=== PATIENT | female | born 1990 | race Caucasian/White ===

== ENCOUNTER 2024-02-26 12:49 | Inpatient (IN) ==
[2024-02-26 13:45] LABS: Basophils # (auto) 0.02 K/uL (0.00-0.20); Basophils % (auto) 0.1 %; Eosinophils # (auto) 0.07 K/uL (0.00-0.50); Eosinophils % (auto) 0.5 %; Hemoglobin 9.3 g/dl (12.0-16.0); Immature Granulocytes # (auto) 0.07 K/uL (0.01-0.20); Immature Granulocytes % (auto) 0.5 %; Lymphocytes # (auto) 0.68 K/uL (1.20-3.40); Lymphocytes % (auto) 4.8 %; Mean Corpuscular Hemoglobin 21.2 pg (25.0-34.0); Mean Corpuscular Volume 70.8 fL (80.0-100.0); Mean Platelet Volume 11.6 fL (9.4-12.4); Monocytes # (auto) 0.92 K/uL (0.11-0.59); Monocytes % (auto) 6.5 %; Neutrophils # (auto) 12.29 K/uL (1.40-6.50); Neutrophils % (auto) 87.6 %; Platelet Count 379 K/uL (130-400); RDW Standard Deviation 45.2 fL (36.4-46.3); Red Blood Count 4.38 M/uL (4.20-5.40); White Blood Count 14.05 K/ul (4.8-10.8)
[2024-02-26 14:02] LABS: Bilirubin,Total 0.3 mg/dl (0.2-1.0); Calcium 8.5 mg/dl (8.6-10.3); Potassium 3.9 mmol/L (3.5-5.1)
[2024-02-26 14:09] LABS: Albumin Globulin Ratio 0.7 (0.9-2); Creatinine Clr Calc Pharmacy 150.1 ml/min; Est GFR (African American) 141.7 ml/min; Est GFR (Non-African American) 122.3 ml/min; Globulin 4.4 gm/dl (2.5-4.0); Total Protein 7.4 gm/dl (6.0-8.3)
[2024-02-26 14:18] LABS: Pregnancy Test, Serum Negative (Negative)
[2024-02-26] MEDS: SODIUM CHLORIDE 0.9% 1,000 ML IV ONE ×2 (14:18→16:30)
[2024-02-26 14:59] LABS: Appearance Urine Clear (Clear); Bacteria Urine Automated None Seen (None Seen); Bilirubin Urine Negative (Negative); Blood Urine 3+ (Negative); Cast Urine Automated 0-2 /lpf (0-2); Color Urine Yellow; Glucose Urine UA Negative (Negative); Ketones Urine Negative (Negative); Leukocyte Esterase Urine Trace (Negative); Nitrite Urine Negative (Negative); Protein Urine Negative (Negative); RBC Urine Automated >20 /hpf (0-2); Specific Gravity Urine 1.012 (1.000-1.030); Urobilinogen Urine Negative (Negative); WBC Urine Automated 0-5 /hpf (0-5)
[2024-02-26] MEDS: OPTIRAY 320 100ml IV ONE (15:11)
--- NOTE | 2024-02-26 15:32 | CT Scan Report ---
CT OF THE ABDOMEN AND PELVIS WITH CONTRAST CLINICAL HISTORY: Right lower quadrant abdominal pain. COMPARISON STUDY: Pelvic ultrasound performed earlier today. TECHNIQUE: Following IV administration of 93 mL of Optiray, axial images of the abdomen and pelvis we re obtained from the lung bases to the proximal femurs. Images were reviewed in the axial, sagittal, and coronal planes. IV contrast was administered without complication. Automated exposure control wa s utilized for the study. A dose lowering technique was utilized adhering to the principles of ALARA . CT DOSE: 1015.67 mGy.cm FINDINGS: A 7 mm left lower lobe pulmonary nodule on image 5 of 293 is noted. Lung bases are otherwis e unremarkable. No pneumatosis, free air or portal venous gas is present. There is no biliary ductal dilatation status post cholecystectomy. Spleen, renal glands, kidneys and pancreas are unremarkable w ith exception of a low-attenuation 9 mm lesion which arises from the lower pole of the left kidney. T his measures just above water attenuation. There is no hydronephrosis. There is no evidence for a bow el obstruction. The appendix is mildly thickened, measuring 8 mm in caliber. The findings do not sugg est acute appendicitis. There is extensive right lower quadrant inflammation centered on the terminal ileum, extending into the mesentery. There is long segment moderate circumferential wall thickening with mucosal hyperemia of the distal ileum. Tethering within the mesentery is noted, shown best on im age 206 of 393. The findings suggest multiple underlying enteroenteric fistulas as well as possible c oloenteric fistulas. There is a loculated rim-enhancing fluid collection anterior to the terminal ile um which measures 7.1 x 4.5 cm. This appears to extend into the right rectus sheath. Extensive adjace nt inflammation is present. This contains a small amount of gas. No additional fluid collections are present. There is a small amount of fluid within the pelvis. Major vasculature is patent. IMPRESSION: 1. Extensive right lower quadrant inflammation centered on the distal ileum. Long segment circumferen tial wall thickening with mucosal hyperemia of the distal ileum with an associated multiloculated rim -enhancing 7.1 x 4.5 cm abscess anterior to the terminal ileum which extends into the right rectus sh eath. The findings suggest active inflammatory bowel disease with abscess formation. No bowel obstruc tion. Associated tethering of multiple small bowel loops and the transverse colon suggests underlying fistulas. 2. Mildly thickened appendix, likely secondary to active inflammatory bowel disease. No evidence for acute appendicitis. 3. Small amount of fluid within the pelvis. 4. 9 mm hypodense left lower pole renal lesion. A renal cyst is favored however a nonemergent renal u ltrasound is recommended for confirmation. 5. 7 mm left lower lobe pulmonary nodule. This is likely benign. A chest CT in 6 months to ensure sta bility is recommended. ACT 112: Positive. There are findings on this exam that require communication between the performing entity and the patient following Patient Test Result Information Act ([place] Act 112) guidelines. Electronically signed by: Ramana Toledo M.D. 02/26/2024 3:30 PM
--- NOTE | 2024-02-26 15:41 | Ultrasound Report ---
PELVIC ULTRASOUND CLINICAL HISTORY: RLQ pain/abnormal vag bleed COMPARISON STUDY: Same day CT of the abdomen and pelvis. TECHNIQUE: Transabdominal and transvaginal sonography of the pelvis was performed. FINDINGS: Uterus measures 10 x 5.4 x 5.5 cm. The endometrium measures 1 cm in thickness. A small amou nt of fluid within the pelvis is present. There is color flow within each ovary. The right ovary justyn ures 2.7 x 1.9 x 2.5 cm and the left ovary measures 3 x 2.3 x 3 cm. Note is made of a complex fluid c ollection within the right lower quadrant which measures 9.1 x 8 x 5.3 cm. There is wall thickening o f several adjacent ileal loops. IMPRESSION: 1. Unremarkable sonographic appearance of the uterus and ovaries. 2. 9.1 x 8 x 5.3 cm complex right lower quadrant fluid collection consistent with an abscess, likely secondary to active inflammatory bowel disease given circumference wall thickening of the adjacent di stal ileum, better depicted on same-day CT. 3. Small amount of fluid within the pelvis. ACT 112: Negative or not required by law. Electronically signed by: Ramana Toledo M.D. 02/26/2024 3:40 PM
--- NOTE | 2024-02-26 16:12 | Emergency Department Note ---
Impression & Plan Intra-abdominal abscess, Abdominal pain, RLQ, Sepsis, Leukocytosis ED Provider Note HISTORY OF PRESENT ILLNESS: Patient is a 33-year-old female presenting with right lower quadrant abdominal pain. Patient reports she has had a vague pain in her right lower quadrant for the last 3 to 4 days. Reports pain became more acutely intense last night. She started noticing hematuria and has had chills at home for the last 3 to 4 days. She states that her last menstrual period was 02/05/2024. She denies any vaginal bleeding when prompted by myself. She denies any history of abdominal surgeries other than a cholecystectomy. She reports she has a history of Crohn's disease, but has not been on your Humira for a number of months. Reports that she has an appointment with gastroenterology at [facility] to establish care in a few weeks. She denies any chest pain or shortness of breath. Reports her last p.o. intake was around 12 noon today. She has not been on any recent antibiotics. ROS: as above PHYSICAL EXAM: Constitutional: Patient appears in no acute distress. HENT: Head: Normocephalic and atraumatic. Eyes: EOMI, PERRL Mouth/Throat: Mucous membranes moist. Neck: Trachea midline. Neck supple. Cardiovascular: Tachycardic with regular rhythm. No murmurs, rubs or gallops. Intact distal pulses. Pulmonary/Chest: No respiratory distress. Breath sounds clear and equal bilaterally. No wheezes or rales. Abdominal: Abdomen soft, no rebound or guarding. RLQ TTP Musculoskeletal: No edema, tenderness or deformity noted. Skin: Warm and dry. No rash, erythema, pallor or cyanosis Psychiatric: Appropriate mood and affect for situation. Neurological: Alert and keenly responsive. CN II-XII grossly intact, moving all extremities equally and fully. MDM: - Vitals signs showed tachycardia. - History obtained via patient. History as above. - Chronic conditions affecting care: Crohn's disease - Differential diagnoses include, but are not limited to: appendicitis; diverticulitis; ectopic ; ischemic colitis; ovarian cyst; pelvic inflammatory disease; ureteral calculi; pelvic abscess - Order placed for continuous cardiac monitoring. At this time, monitor showed rate of 113 bpm with normal sinus rhythm, per my interpretation. - External medical records reviewed. - EKG interpreted by myself showed normal sinus rhythm. Rate 95 bpm. QT 356. No acute ischemic changes. - Laboratory workup interpreted by myself showed leukocytosis (WBC 14.05) with neutrophil predominance; anemia (Hgb 9.3); hyponatremia (Na 132); normal procalcitonin; negative hCG; normal lactate - UA negative for infection. Noted to have blood - US pelvis obtained via triage protocols showed 9.1 x 8 x 5.3 centimeter complex right lower quadrant fluid collection consistent with an abscess. - CT abdomen/pelvis with IV contrast showed extensive right lower quadrant inflammation centered on the distal ileum. Noted to have a multiloculated rim- enhancing 7.1 x 4.5 cm abscess anterior to the ileum extending into the right rectus sheath concerning for active inflammatory bowel disease with abscess formation. No bowel obstruction. Noted to have a mildly thickened appendix. - Patient given 2L NS in ER. Given IV zosyn for antibiotic coverage. Given 4 mg IV zofran and 50 mcg IV fentanyl initially. On reassessment, the patient is still complaining of pain. Given an additional 50 mcg of IV fentanyl. - Discussed case with surgery at [facility] and they recommended given the patient's inflammatory bowel disease history and CT findings, that she be transferred to a tertiary care facility. - Discussed case with gastroenterology at [facility] in [place], Dr. Montes, at 17:26. He was in agreement that the patient would need transferred and recommended the patient be admitted to the medicine service. Discussed case with Dr. Harrison, the systems triage officer at [facility] in [place], at 17:30. He is going to coordinate from his end on whether the patient would need transferred to [facility] or if the patient could be cared for at [facility]. He states he will call back with further information. - Dr. Harrison did contact me again at [phone] and reports that unfortunately [facility] does not have any IR capabilities until 02/27. He states the patient has been accepted to [facility] under hospitalist Dr. Ivelisse Naik. [facility] will be calling with a bed assignment. - I have ordered NS @ 125 cc/hr for continued hydration, 50 mcg IV fentanyl Q2H PRN for pain control and I have ordered patient's zosyn for Q8H while awaiting bed assignment at [facility]. - Plan for patient to be transferred to [facility] in [facility] [address] once bed has been assigned. If they do not have a bed available this evening, the plan will be to admit to the [facility] service at [facility] until bed assignment at the tertiary care facility. ASSESSMENT AND PLAN: Diagnosis: Intra-abdominal abscess; right lower quadrant abdominal pain; leukocytosis Plan: transfer Past Med/Surg History Problem List (Updated 02/26/24 @ 18:44 by Kathy Kiser MD) Leukocytosis (Acute) Sepsis (Acute) Abdominal pain, RLQ (Acute) Intra-abdominal abscess (Acute) Social History Smoking Status: Current every day smoker Preferred Language: Ghanaian Feels Safe at Home: Yes Allergies Allergies Allergy/AdvReac Type Severity Reaction Status Date / Time No Known Allergies Allergy Unverified 02/26/24 15:59 Home Meds Home Medications Medication Instructions Recorded Confirmed No Known Home Medications 02/26/24 02/26/24 Results & Data (ED) Vital Signs Vital Signs - 24 hr 02/26/24 12:56 02/26/24 15:49 02/26/24 15:59 Temperature 36.8 C 37.1 C Temperature Source Temporal Artery Scan Oral Pulse Rate 140 H 113 H Pulse Rate [Apical] 109 H Pulse Rhythm [Apical] Regular Respiratory Rate 20 21 Respiratory Effort / Characteristics Non-Labored Spontaneous Non-Labored Spontaneous Respiratory Depth Normal Normal Respiratory Pattern Regular Blood Pressure 120/63 Blood Pressure [Left Arm] 115/63 Blood Pressure Mean 82 Blood Pressure Mean [Left Arm] 80 Blood Pressure Position [Left Arm] Right Lateral Pulse Oximetry 99 98 Oxygen Delivery Method Room Air Room Air Sepsis Recent Fever Within 48 Hours No Sepsis New/Unexplained Change in Mental Status No Sepsis Action Taken by Nursing No Action Required 02/26/24 17:35 02/26/24 18:04 Temperature 37.5 C Temperature Source Oral Pulse Rate Pulse Rate [Apical] 103 H 102 H Pulse Rhythm [Apical] Respiratory Rate 22 20 Respiratory Effort / Characteristics Non-Labored Spontaneous Non-Labored Spontaneous Respiratory Depth Normal Normal Respiratory Pattern Regular Regular Blood Pressure Blood Pressure [Left Arm] 102/68 105/60 Blood Pressure Mean Blood Pressure Mean [Left Arm] 79 75 Blood Pressure Position [Left Arm] Lying Pulse Oximetry 97 96 Oxygen Delivery Method Room Air Room Air Sepsis Recent Fever Within 48 Hours Sepsis New/Unexplained Change in Mental Status Sepsis Action Taken by Nursing Laboratory Data 02/26/24 13:20 02/26/24 13:20 Lab Results 02/26/24 02/26/24 02/26/24 Range/Units 13:20 13:25 16:52 WBC 14.05 H (4.8-10.8) K/ul RBC 4.38 (4.20-5.40) M/uL Hgb 9.3 L (12.0-16.0) g/dl Hct 31.0 L (37.0-47.0) % MCV 70.8 L (80.0-100.0) fL MCH 21.2 L (25.0-34.0) pg MCHC 30.0 L (32.0-36.0) g/dL RDW Std Deviation 45.2 (36.4-46.3) fL RDW Coeff of Wes 18.0 H (11.5-14.5) % Plt Count 379 (130-400) K/uL MPV 11.6 (9.4-12.4) fL Immature Gran % (Auto) 0.5 % Neut % (Auto) 87.6 % Lymph % (Auto) 4.8 % Ross % (Auto) 6.5 % Eos % (Auto) 0.5 % Baso % (Auto) 0.1 % Neut # (Auto) 12.29 H (1.40-6.50) K/uL Lymph # (Auto) 0.68 L (1.20-3.40) K/uL Ross # (Auto) 0.92 H (0.11-0.59) K/uL Eos # (Auto) 0.07 (0.00-0.50) K/uL Baso # (Auto) 0.02 (0.00-0.20) K/uL Immature Gran # (Auto) 0.07 (0.01-0.20) K/uL Sodium 132 L (136-145) mmol/L Potassium 3.9 (3.5-5.1) mmol/L Chloride 96 L (98-107) mmol/L Carbon Dioxide 30 (21-32) mmol/L Anion Gap 6 (3-11) BUN 7 (6-23) mg/dl Creatinine 0.54 L (0.6-1.2) mg/dl Est Cr Clr Drug Dosing 150.1 ml/min Est GFR ( Amer) 141.7 ml/min Est GFR (Non-Af Amer) 122.3 ml/min BUN/Creatinine Ratio 13.0 (10-20) Glucose 86 (70-99(Fasting)) mg/dl Lactate 0.8 (0.4-2.0) mmol/L Calcium 8.5 L (8.6-10.3) mg/dl Total Bilirubin 0.3 (0.2-1.0) mg/dl AST 19 (13-39) U/L ALT 14 (7-52) U/L Alkaline Phosphatase 116 H (34-104) U/L Total Protein 7.4 (6.0-8.3) gm/dl Albumin 3.0 L (3.4-5.0) gm/dl Globulin 4.4 H (2.5-4.0) gm/dl Albumin/Globulin Ratio 0.7 L (0.9-2) Lipase 4 L (11-82) U/L Procalcitonin 0.03 (0-0.5) ng/ml HCG, Qual Negative (Negative) Urine Color Yellow Urine Appearance Clear (Clear) Urine pH 7.0 (4.5-7.5) Ur Specific [place] 1.012 (1.000-1.030) Urine Protein Negative (Negative) Urine Glucose (UA) Negative (Negative) Urine Ketones Negative (Negative) Urine Blood 3+ H (Negative) Urine Nitrite Negative (Negative) Urine Bilirubin Negative (Negative) Urine Urobilinogen Negative (Negative) Ur Leukocyte Esterase Trace H (Negative) Urine WBC (Auto) 0-5 (0-5) /hpf Urine RBC (Auto) >20 H (0-2) /hpf U Hyaline Cast (Auto) 0-2 (0-2) /lpf U Epithel Cells (Auto) 6-10 H (0-2) /hpf Urine Bacteria (Auto) None Seen (None Seen) Blood Type O Negative Antibody Screen NEGATIVE Administered Medications Discontinued Medications Fentanyl Citrate (Fentanyl Citrate Pf 100 Mcg/2 Ml Vial) 50 mcg IV NOW STA Stop: 02/26/24 15:59 Last Admin: 02/26/24 16:29 Dose: 50 mcg Documented By: SRL Sodium Chloride (Nss) 1,000 mls @ 999 mls/hr IV .Q1H1M ONE Stop: 02/26/24 14:30 Last Infusion: 02/26/24 15:30 Dose: Infused Documented By: Admin: 02/26/24 14:18 Dose: 999 mls/hr Documented By: LEEANNE Piperacillin Sod/Tazobactam Sod (Zosyn) 4.5 gm in 100 mls @ 200 mls/hr IV NOW ONE Stop: 02/26/24 16:16 Last Infusion: 02/26/24 17:15 Dose: Infused Documented By: Admin: 02/26/24 16:32 Dose: 200 mls/hr Documented By: RAIN Sodium Chloride (Nss) 1,000 mls @ 999 mls/hr IV .Q1H1M ONE Stop: 02/26/24 16:47 Last Infusion: 02/26/24 17:15 Dose: Infused Documented By: Admin: 02/26/24 16:30 Dose: 999 mls/hr Documented By: RAIN Ioversol (Optiray 320 100ml) 93 ml IV ONCE ONE Stop: 02/26/24 15:12 Last Admin: 02/26/24 15:11 Dose: 93 ml Documented By: NANCY Ondansetron HCl (Ondansetron Inj 2 Mg/Ml 2 Ml Vial) 4 mg IV NOW STA Stop: 02/26/24 15:59 Last Admin: 02/26/24 16:29 Dose: 4 mg Documented By: RAIN Imaging Data Radiologist's Impression: Pelvis Ultrasound 02/26/24 13:03 PELVIC ULTRASOUND CLINICAL HISTORY: RLQ pain/abnormal vag bleed COMPARISON STUDY: Same day CT of the abdomen and pelvis. TECHNIQUE: Transabdominal and transvaginal sonography of the pelvis was performed. FINDINGS: Uterus measures 10 x 5.4 x 5.5 cm. The endometrium measures 1 cm in thickness. A small amount of fluid within the pelvis is present. There is color flow within each ovary. The right ovary measures 2.7 x 1.9 x 2.5 cm and the left ovary measures 3 x 2.3 x 3 cm. Note is made of a complex fluid collection within the right lower quadrant which measures 9.1 x 8 x 5.3 cm. There is wall thickening of several adjacent ileal loops. IMPRESSION: 1. Unremarkable sonographic appearance of the uterus and ovaries. 2. 9.1 x 8 x 5.3 cm complex right lower quadrant fluid collection consistent with an abscess, likely secondary to active inflammatory bowel disease given circumference wall thickening of the adjacent distal ileum, better depicted on same-day CT. 3. Small amount of fluid within the pelvis. ACT 112: Negative or not required by law. Electronically signed by: Ramana Toledo M.D. 02/26/2024 3:40 PM Abdomen/Pelvis CT 02/26/24 15:01 CT OF THE ABDOMEN AND PELVIS WITH CONTRAST CLINICAL HISTORY: Right lower quadrant abdominal pain. COMPARISON STUDY: Pelvic ultrasound performed earlier today. TECHNIQUE: Following IV administration of 93 mL of Optiray, axial images of the abdomen and pelvis were obtained from the lung bases to the proximal femurs. Images were reviewed in the axial, sagittal, and coronal planes. IV contrast was administered without complication. Automated exposure control was utilized for the study. A dose lowering technique was utilized adhering to the principles of ALARA. CT DOSE: 1015.67 mGy.cm FINDINGS: A 7 mm left lower lobe pulmonary nodule on image 5 of 293 is noted. Lung bases are otherwise unremarkable. No pneumatosis, free air or portal venous gas is present. There is no biliary ductal dilatation status post cholecystectomy. Spleen, renal glands, kidneys and pancreas are unremarkable with exception of a low-attenuation 9 mm lesion which arises from the lower pole of the left kidney. This measures just above water attenuation. There is no hydronephrosis. There is no evidence for a bowel obstruction. The appendix is mildly thickened, measuring 8 mm in caliber. The findings do not suggest acute appendicitis. There is extensive right lower quadrant inflammation centered on the terminal ileum, extending into the mesentery. There is long segment moderate circumferential wall thickening with mucosal hyperemia of the distal ileum. Tethering within the mesentery is noted, shown best on image 206 of 393. 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 There is a loculated rim-enhancing fluid collection anterior to the terminal ileum which measures 7.1 x 4.5 cm. This appears to extend into the right rectus sheath. Extensive adjacent inflammation is present. This contains a small amount of gas. No additional fluid collections are present. There is a small amount of fluid within the pelvis. Major vasculature is patent. IMPRESSION: 1. Extensive right lower quadrant inflammation centered on the distal ileum. Long segment circumferential wall thickening with mucosal hyperemia of the distal ileum with an associated multiloculated rim-enhancing 7.1 x 4.5 cm abscess anterior to the terminal ileum which extends into the right rectus sheath. The findings suggest active inflammatory bowel disease with abscess formation. No bowel obstruction. Associated tethering of multiple small bowel loops and the transverse colon suggests underlying fistulas. 2. Mildly thickened appendix, likely secondary to active inflammatory bowel disease. No evidence for acute appendicitis. 3. Small amount of fluid within the pelvis. 4. 9 mm hypodense left lower pole renal lesion. A renal cyst is favored however a nonemergent renal ultrasound is recommended for confirmation. 5. 7 mm left lower lobe pulmonary nodule. This is likely benign. A chest CT in 6 months to ensure stability is recommended. ACT 112: Positive. There are findings on this exam that require communication between the performing entity and the patient following Patient Test Result Information Act ([place] Act 112) guidelines. Electronically signed by: Ramana Toledo M.D. 02/26/2024 3:30 PM Discharge Plan Visit Data Chief Complaint: Abdominal Pain Stated Complaint: LOWER ABDOMINAL PAIN, VAGINAL BLEEDING ED Provider: Kathy Kiser Discharge Problem: Intra-abdominal abscess, Abdominal pain, RLQ, Sepsis, Leukocytosis Patient Disposition: Transfer Acute Care Hospital Forms Stand Alone Forms: My OrderAhead Prescriptions Prescriptions: No Action No Known Home Medications Referrals Referrals: PCP,NO [Primary Care Provider] -
--- NOTE | 2024-02-26 16:20 | Communication Note ---
Date of Service: February 26, 2024 CT and history reviewed, h/o crohn's dx now with complex RLQ abscess w/ fistula and active crohn's, on Humira, but no current GI f/u. Would recommend trx to tertiary center as this is quite complex and patient may need anti TNF treatment and or surgical resection in conjunction with abx and perc drainage. If remains in house can attempt IR drainage and abx, surgery will follow, but would need trx for any surgical intervention.
[2024-02-26] MEDS: ONDANSETRON INJ 2 MG/ML 2 ML VIAL IV STA ×2 (16:29→20:06)
[2024-02-26] MEDS: fentaNYL citrate PF 100 MCG/2 ML VIAL IV STA ×2 (16:29→18:53)
[2024-02-26] MEDS: PIPERACILLIN/TAZOBACTAM 4.5 GM/100 ML BAG IV ONE (16:32)
[2024-02-26] MEDS ORDERED: fentaNYL citrate PF 100 MCG/2 ML VIAL IV PRN (18:42)
[2024-02-26] MEDS: SODIUM CHLORIDE 0.9% 1,000 ML IV STA (18:57)
[2024-02-26] MEDS: HYDROmorphone INJ 0.5 MG/0.5 ML SYR IV STA (20:06)
--- NOTE | 2024-02-26 21:42 | History & Physical Report ---
Date of Service February 26, 2024 Assessment & Plan (1) Sepsis: Plan: Secondary to intra-abdominal abscess History of Crohn's disease currently not on medication UGIB Anemia secondary to above Ongoing tobacco abuse Medical telemetry CS, Zosyn [facility] transfer once a bed available. (Patient accepted for transfer by Dr. Naik of hospitalist service as per ED provider. Transfer paperwork already completed at the ER.) IV PPI for UGIB Anemia workup Transfuse PRBC to maintain hemoglobin of at least 7 Nicotine patch as needed DVT prophylaxis. SCDs Re: GI bleed Full code Text document was generated using Ala-Septic recognition software. It may contain grammatical or spelling errors. Kindly contact undersigned for clarification of any documentation item in question. History of Present Illness Chief Complaint: Abdominal pain Primary Care Provider: NO PCP History obtained from patient and records. Medical history significant for Crohn's disease, ongoing tobacco abuse. 4 days history of achy right lower quadrant pain which progressively worsened. Black stools as per patient. No emesis. Chills at home. Denies chest pain, SOB. Usual smoker's cough symptoms as per patient. Admits to OTC NSAID intake at home. Patient currently having menses. Patient consulted [facility] ER. CT abdomen pelvis showed Extensive right lower quadrant inflammation centered on the distal ileum. Long segment circumferential wall thickening with mucosal hyperemia of the distal ileum with an associated multiloculated rim-enhancing 7.1 x 4.5 cm abscess anterior to the terminal ileum which extends into the right rectus sheath. The findings suggest active inflammatory bowel disease with abscess formation. No bowel obstruction. Associated tethering of multiple small bowel loops and the transverse colon suggests underlying fistulas. IV Zosyn administered at the ER. [facility] General Surgery recommended transfer to tertiary center. Patient accepted by [facility] hospitalist service pending bed availability. Medical History as above Surgical History : None Family History : No IBD Personal/Social history : 1/2 pack daily, no EtOH intake, currently unemployed Allergies Allergy/AdvReac Type Severity Reaction Status Date / Time No Known Allergies Allergy Unverified 02/26/24 15:59 Home Medications Medication Instructions Recorded Confirmed Type No Known Home Medications 02/26/24 02/26/24 History Past Med/Surg History Problem List (Updated 02/26/24 @ 18:44 by Kathy Kiser MD) Leukocytosis (Acute) Sepsis (Acute) Abdominal pain, RLQ (Acute) Intra-abdominal abscess (Acute) Social History Smoking Status: Current every day smoker Tobacco Type: Cigarettes Hx Alcohol Use: No Hx Substance Use: Yes Preferred Language: [place] [employer] Sh[employer] Required: No Beliefs That Will Affect Care: None Current Living Situation: Significant Other Current Living Situation Comment: house Feels Safe at Home: Yes Safety Concerns: Feels Safe At This Time Review of Systems Review of Systems: As per HPI, all other systems reviewed and negative Physical Exam Physical Exam: GENERAL: uncomfortable, looks older than stated age, no respiratory distress SKIN: Pallor, warm HEENT: Pale palpebral conjunctivae, no ptosis, dry buccal mucosa NECK : Supple, no tenderness CHEST : Decreased breath sounds, occasional expiratory wheezes, no tenderness HEART : Tachycardic, no obvious murmurs ABDOMEN: Some distention, hypogastric tenderness RECTAL : Intact sphincter, dark brown stool (FOBT positive) EXTREMITIES : No LE swelling/tenderness, no other conspicuous deformities noted NEUROLOGIC : Coherent, no facial asymmetry, no other gross focality Results & Data Results & Data Vital Signs (Past 12 Hours) Vital Signs Temp Pulse Pulse Resp BP BP Pulse Ox 02/26/24 18:52 103 H 20 101/61 98 02/26/24 18:04 37.5 C 102 H 20 105/60 96 02/26/24 17:35 103 H 22 102/68 97 02/26/24 15:59 113 H 02/26/24 15:49 37.1 C 109 H 21 115/63 98 02/26/24 12:56 36.8 C 140 H 20 120/63 99 O2 Del Method 02/26/24 18:52 Room Air 02/26/24 18:04 Room Air 02/26/24 17:35 Room Air 02/26/24 15:59 02/26/24 15:49 Room Air 02/26/24 12:56 Room Air Laboratory Results Laboratory Results WBC 14.05 K/ul (4.8-10.8) H 02/26/24 13:20 RBC 4.38 M/uL (4.20-5.40) 02/26/24 13:20 Hgb 9.3 g/dl (12.0-16.0) L 02/26/24 13:20 Hct 31.0 % (37.0-47.0) L 02/26/24 13:20 MCV 70.8 fL (80.0-100.0) L 02/26/24 13:20 MCH 21.2 pg (25.0-34.0) L 02/26/24 13:20 MCHC 30.0 g/dL (32.0-36.0) L 02/26/24 13:20 RDW Std Deviation 45.2 fL (36.4-46.3) 02/26/24 13:20 RDW Coeff of Wes 18.0 % (11.5-14.5) H 02/26/24 13:20 Plt Count 379 K/uL (130-400) 02/26/24 13:20 MPV 11.6 fL (9.4-12.4) 02/26/24 13:20 Immature Gran % (Auto) 0.5 % 02/26/24 13:20 Neut % (Auto) 87.6 % 02/26/24 13:20 Lymph % (Auto) 4.8 % 02/26/24 13:20 [place] % (Auto) 6.5 % 02/26/24 13:20 Eos % (Auto) 0.5 % 02/26/24 13:20 Baso % (Auto) 0.1 % 02/26/24 13:20 Neut # (Auto) 12.29 K/uL (1.40-6.50) H 02/26/24 13:20 Lymph # (Auto) 0.68 K/uL (1.20-3.40) L 02/26/24 13:20 [place] # (Auto) 0.92 K/uL (0.11-0.59) H 02/26/24 13:20 Eos # (Auto) 0.07 K/uL (0.00-0.50) 02/26/24 13:20 Baso # (Auto) 0.02 K/uL (0.00-0.20) 02/26/24 13:20 Immature Gran # (Auto) 0.07 K/uL (0.01-0.20) 02/26/24 13:20 Sodium 132 mmol/L (136-145) L 02/26/24 13:20 Potassium 3.9 mmol/L (3.5-5.1) 02/26/24 13:20 Chloride 96 mmol/L (98-107) L 02/26/24 13:20 Carbon Dioxide 30 mmol/L (21-32) 02/26/24 13:20 Anion Gap 6 (3-11) 02/26/24 13:20 BUN 7 mg/dl (6-23) 02/26/24 13:20 Creatinine 0.54 mg/dl (0.6-1.2) L 02/26/24 13:20 Est Cr Clr Drug Dosing 150.1 ml/min 02/26/24 13:20 Est GFR ( Amer) 141.7 ml/min 02/26/24 13:20 Est GFR (Non-Af Amer) 122.3 ml/min 02/26/24 13:20 BUN/Creatinine Ratio 13.0 (10-20) 02/26/24 13:20 Glucose 86 mg/dl (70-99(Fasting)) 02/26/24 13:20 Lactate 0.8 mmol/L (0.4-2.0) 02/26/24 16:52 Calcium 8.5 mg/dl (8.6-10.3) L 02/26/24 13:20 Total Bilirubin 0.3 mg/dl (0.2-1.0) 02/26/24 13:20 AST 19 U/L (13-39) 02/26/24 13:20 ALT 14 U/L (7-52) 02/26/24 13:20 Alkaline Phosphatase 116 U/L (34-104) H 02/26/24 13:20 Total Protein 7.4 gm/dl (6.0-8.3) 02/26/24 13:20 Albumin 3.0 gm/dl (3.4-5.0) L 02/26/24 13:20 Globulin 4.4 gm/dl (2.5-4.0) H 02/26/24 13:20 Albumin/Globulin Ratio 0.7 (0.9-2) L 02/26/24 13:20 Lipase 4 U/L (11-82) L 02/26/24 13:20 Procalcitonin 0.03 ng/ml (0-0.5) 02/26/24 13:20 HCG, Qual Negative (Negative) 02/26/24 13:20 Urine Color Yellow 02/26/24 13:25 Urine Appearance Clear (Clear) 02/26/24 13:25 Urine pH 7.0 (4.5-7.5) 02/26/24 13:25 Ur Specific [place] 1.012 (1.000-1.030) 02/26/24 13:25 Urine Protein Negative (Negative) 02/26/24 13:25 Urine Glucose (UA) Negative (Negative) 02/26/24 13:25 Urine Ketones Negative (Negative) 02/26/24 13:25 Urine Blood 3+ (Negative) H 02/26/24 13:25 Urine Nitrite Negative (Negative) 02/26/24 13:25 Urine Bilirubin Negative (Negative) 02/26/24 13:25 Urine Urobilinogen Negative (Negative) 02/26/24 13:25 Ur Leukocyte Esterase Trace (Negative) H 02/26/24 13:25 Urine WBC (Auto) 0-5 /hpf (0-5) 02/26/24 13:25 Urine RBC (Auto) >20 /hpf (0-2) H 02/26/24 13:25 U Hyaline Cast (Auto) 0-2 /lpf (0-2) 02/26/24 13:25 U Epithel Cells (Auto) 6-10 /hpf (0-2) H 02/26/24 13:25 Urine Bacteria (Auto) None Seen (None Seen) 02/26/24 13:25 Blood Type O Negative 02/26/24 16:52 Antibody Screen NEGATIVE 02/26/24 16:52 Impressions Pelvis Ultrasound 02/26/24 13:03 PELVIC ULTRASOUND CLINICAL HISTORY: RLQ pain/abnormal vag bleed COMPARISON STUDY: Same day CT of the abdomen and pelvis. TECHNIQUE: Transabdominal and transvaginal sonography of the pelvis was performed. FINDINGS: Uterus measures 10 x 5.4 x 5.5 cm. The endometrium measures 1 cm in thickness. A small amount of fluid within the pelvis is present. There is color flow within each ovary. The right ovary measures 2.7 x 1.9 x 2.5 cm and the left ovary measures 3 x 2.3 x 3 cm. Note is made of a complex fluid collection within the right lower quadrant which measures 9.1 x 8 x 5.3 cm. There is wall thickening of several adjacent ileal loops. IMPRESSION: 1. Unremarkable sonographic appearance of the uterus and ovaries. 2. 9.1 x 8 x 5.3 cm complex right lower quadrant fluid collection consistent with an abscess, likely secondary to active inflammatory bowel disease given circumference wall thickening of the adjacent distal ileum, better depicted on same-day CT. 3. Small amount of fluid within the pelvis. ACT 112: Negative or not required by law. Electronically signed by: Ramana Toledo M.D. 02/26/2024 3:40 PM Abdomen/Pelvis CT 02/26/24 15:01 CT OF THE ABDOMEN AND PELVIS WITH CONTRAST CLINICAL HISTORY: Right lower quadrant abdominal pain. COMPARISON STUDY: Pelvic ultrasound performed earlier today. TECHNIQUE: Following IV administration of 93 mL of Optiray, axial images of the abdomen and pelvis were obtained from the lung bases to the proximal femurs. Images were reviewed in the axial, sagittal, and coronal planes. IV contrast was administered without complication. Automated exposure control was utilized for the study. A dose lowering technique was utilized adhering to the principles of ALARA. CT DOSE: 1015.67 mGy.cm FINDINGS: A 7 mm left lower lobe pulmonary nodule on image 5 of 293 is noted. Lung bases are otherwise unremarkable. No pneumatosis, free air or portal venous gas is present. There is no biliary ductal dilatation status post cholecystectomy. Spleen, renal glands, kidneys and pancreas are unremarkable with exception of a low-attenuation 9 mm lesion which arises from the lower pole of the left kidney. This measures just above water attenuation. There is no hydronephrosis. There is no evidence for a bowel obstruction. The appendix is mildly thickened, measuring 8 mm in caliber. The findings do not suggest acute appendicitis. There is extensive right lower quadrant inflammation centered on the terminal ileum, extending into the mesentery. There is long segment moderate circumferential wall thickening with mucosal hyperemia of the distal ileum. Tethering within the mesentery is noted, shown best on image 206 of 393. The f indings suggest multiple underlying enteroenteric fistulas as well as possible coloenteric fistulas. There is a loculated rim-enhancing fluid collection anterior to the terminal ileum which measures 7.1 x 4.5 cm. This appears to extend into the right rectus sheath. Extensive adjacent inflammation is present. This contains a small amount of gas. No additional fluid collections are present. There is a small amount of fluid within the pelvis. Major vasculature is patent. IMPRESSION: 1. Extensive right lower quadrant inflammation centered on the distal ileum. Long segment circumferential wall thickening with mucosal hyperemia of the distal ileum with an associated multiloculated rim-enhancing 7.1 x 4.5 cm abscess anterior to the terminal ileum which extends into the right rectus prieto th. The findings suggest active inflammatory bowel disease with abscess formation. No bowel obstruction. Associated tethering of multiple small bowel loops and the transverse colon suggests underlying fistulas. 2. Mildly thickened appendix, likely secondary to active inflammatory bowel disease. No evidence for acute appendicitis. 3. Small amount of fluid within the pelvis. 4. 9 mm hypodense left lower pole renal lesion. A renal cyst is favored however a nonemergent renal ultrasound is recommended for confirmation. 5. 7 mm left lower lobe pulmonary nodule. This is likely benign. A chest CT in 6 months to ensure stability is recommended. ACT 112: Positive. There are findings on this exam that require communication between the performing entity and the patient following Patient Test Result Information Act ([place] Act 112) guidelines. Electronically signed by: Ramana Toledo M.D. 02/26/2024 3:30 PM Diagnostic Findings EKG as per my interpretation :Rate 90, NSR, normal axis, no ischemia
[2024-02-26] MEDS: NSS + 20MEQ KCL 20 MEQ/1,000 ML BAG IV ONE (22:18)
[2024-02-26] MEDS ORDERED: LORazepam 0.5 MG TAB PO PRN (22:28)
[2024-02-26] MEDS: PANTOprazole 80 MG in DEXTROSE 5% 100 ML IV STA (22:52)
[2024-02-26] MEDS: PIPERACILLIN/TAZOBACTAM 4.5 GM/100 ML BAG IV SCH (23:51)
[2024-02-27] MEDS: oxyCODONE HCL IR 5 MG TAB (IMMEDIATE RELEASE) PO PRN (00:50)
[2024-02-27 00:56] LABS: Hematocrit (blood only) 31.1 % (37.0-47.0); Hemoglobin 9.4 g/dl (12.0-16.0); Reticulocytes # 0.04 10^6/uL (0.020-0.100)
[2024-02-27 01:04] LABS: Sodium 133 mmol/L (136-145)
[2024-02-27 01:24] LABS: Ferritin 38.1 ng/ml (8-388)
[2024-02-27 01:26] LABS: Iron < 10 mcg/dl (35-150); Magnesium 1.8 mg/dl (1.7-2.4); Transferrin 169 mg/dl (200-360)
[2024-02-27 01:29] LABS: Folate (Folic Acid),Ser orPlas 17.22 ng/ml (>5.38)
[2024-02-27 05:13] LABS: Basophils # (auto) 0.02 K/uL (0.00-0.20); Basophils % (auto) 0.1 %; Eosinophils # (auto) 0.05 K/uL (0.00-0.50); Eosinophils % (auto) 0.3 %; Hematocrit (blood only) 27.1 % (37.0-47.0); Hemoglobin 8.3 g/dl (12.0-16.0); Immature Granulocytes # (auto) 0.12 K/uL (0.01-0.20); Immature Granulocytes % (auto) 0.7 %; Lymphocytes # (auto) 0.74 K/uL (1.20-3.40); Lymphocytes % (auto) 4.4 %; Mean Corpuscular Hemoglobin 21.2 pg (25.0-34.0); Mean Corpuscular Hgb Conc 30.6 g/dL (32.0-36.0); Mean Corpuscular Volume 69.3 fL (80.0-100.0); Monocytes # (auto) 1.11 K/uL (0.11-0.59); Monocytes % (auto) 6.5 %; Neutrophils # (auto) 14.92 K/uL (1.40-6.50); RDW Coefficient of Variation 17.7 % (11.5-14.5); RDW Standard Deviation 44.2 fL (36.4-46.3); Red Blood Count 3.91 M/uL (4.20-5.40); White Blood Count 16.96 K/ul (4.8-10.8)
[2024-02-27 05:37] LABS: BUN Creatinine Ratio 8.8 (10-20); Calcium 7.6 mg/dl (8.6-10.3); Creatinine Clr Calc Pharmacy 142.2 ml/min; Est GFR (African American) 139.2 ml/min; Est GFR (Non-African American) 120.1 ml/min; Potassium 3.4 mmol/L (3.5-5.1)
[2024-02-27 05:56] LABS: Mean Platelet Volume 10.8 fL (9.4-12.4); Microcytosis Present; Platelet Count 366 K/uL (130-400); Polychromasia 2+
[2024-02-27] MEDS: ACETAMINOPHEN 325 MG TAB PO PRN (05:59)
[2024-02-27] MEDS: NSS + 20MEQ KCL 20 MEQ/1,000 ML BAG IV ONE (08:07)
[2024-02-27] MEDS: PANTOprazole 40 MG in SYRINGE 0 ML IV SCH (08:43)
[2024-02-27] MEDS: POTASSIUM CHLORIDE / WTR 10 MEQ/100 ML PLCT IV SCH (09:11)
--- OUTSIDE RECORDS SUMMARY | 2024-02-27 09:17 | External Medical Summary | Summary of Care ---
Author Name Unknown Organization [facility] Address [address] [place] [address] Phone [phone] Care Team Providers Care Building Performance Specialist Name Role Phone Unavailable Primary Care Provider Unavailabl e Reason for Visit * Reason Onset Date Comments Appointment 02/23/2024 Need records hayley or to appointment next week Encounter Details Date Type Department Care Team (Late st Contact Info) Description 02/23/2024 Telephone Gastroenterology, Ahsan [place] [facility] [place] [address] Marianne Ceron PA-C [facility] [place] [address] Appointment (Need records prior to appoint... Allergies No known active allergiesdocumented as of this encounter (statuses as of 02/23/2024) Medications Medication Sig Dispensed Refills Start Date End Date Status ZYRTEC 10 MG OR TABSIndications:Urti caria,Rash and nonspecific skin eruption one tab by mouth daily 34 5 05/15/2002 Active Additional Information Patient not taking.Reported on 12/14/2023 oxyCODONE-Acetaminop hen 5-325 MG Oral Tablet (Percocet) Take 1 Tablet by mouth every 6 hours as needed for Pain, Moderate or Pain, Severe for up to 5 doses. 5 Tablet 12/14/2023 Active documented as of this encounter (statuses as of 02/23/2024) Active Problems Problem Noted Date Diagnosed Date Syncope and collapse 05/15/2002 NONSPECIF SKIN ERUPT NEC 05/15/2002 Urticaria 05/15/2002 documented as of this encounter (statuses as of 02/23/2024) Immunizations Name Administration Dates Next Due DTaP Dipth/Tet/Acell Pertussis (Infanrix), Peds 07/20/1992,09/04/1991,03/08/1991,1988 Haemophilius B (HIB), unspecified 1993,02/04/1994,07/10/1992,1990 MMR - Measles/Mumps/Rubella Vaccine 07/10/1992,0 03/08/1991 OPV - Polio Virus Vaccine (Oral) 03/08/1991,08/04,1988 PPD 05/15/2002 documented as of this encounter Social History Tobacco Use Types Packs/Day Years Used Date Smoking Tobacco: Every Day Cigarettes 0.5 10.6 Started: 2013 Smokeless Tobacco: Never Alcohol Use Standard Drinks/Week Comments Yes 0 (1 standard drink = 0.6 oz pur e alcohol) socially Utilities Answer Date Recorded Do you have trouble paying y our heating, water, or electric bill? (Adult - for ages 18 years and over) Not on file 12/19/2023 Is your family able to pay t he heat, water, or electric bill? (Household - for ages 0-17 years) Not on file 12/19/2023 Does your family have access to good internet? (Household - for ages 0-17 years) Not on file 12/19/2023 Social Connections Answer Date Recorded How often do you feel lonely or isolated from those around you? (Adult - for ages 18 years and over) Not on file 12/19/2023 Sex and Gender Information Value Date Recorded Sex Assigned at Not on file Gender Identity Not on file Sexual Orientation Not on file documented as of this encounter Miscellaneous Notes * Telephone Encounter - Teagan Rose OSA - 02/23/2024 2:14 PM EDT Lm w/ pt relative to have her call us back * Telephone Encounter - Marianne Ceron PA-C - 02/23/2024 1:51 PM EDT I have a new patient clinic appointment with this patient next week on for hx of Crohn's. There is no GI history scanned on her chart. She has no PCP listed and there is nothing in Care Everywhere. Appointment notes say she had been previously on Humira - last was July 2023. Need clinic notes from prior GI group, as well as prior procedure notes so that her visit with me next week can be productive. I will not just prescribe Humira without records. Thank you! documented in this encounter Plan of Treatment Upcoming Encounters Date Type Department Care Team (Late st Contact Info) Description 02/29/2024 3:00 PM EDT Office Visit Gastroenterology, [place] [facility] [place] [address] Marianne Ceron PA-C [address] [place] [address] [place] [address] Health Maintenance Due Date Last Done Comments Diabetes Screening 1988 Pneumococcal Vaccine: Pediatrics (0 to 5 Years) and At-Risk Patients (6 to 64 Years) (1 of 2 - PCV) 1994 DTaP,Tdap,and Td Vaccines (5 - Tdap) 1999 02/04/1994, 07/20/1992, 07/20/1992, Additional history exists Depression Screening 2000 HIV Screening 2003 Hepatitis B Vaccine (2 of 3 - 3-dose series) 04/16/2003 03/19/2003 Hepatitis C Screening 2006 Pap Smear 2009 Cervical Cancer Screening 2018 HPV/Co-Test 2018 COVID-19 Vaccine (2022- season) 2023 Influenza Vaccine (FLU shot) (#1) 2024 HPV (Gardasil) Vaccine Aged Out No lo nger eligible based on patient's age to complete this topic MENINGOCOCCAL (MENACTRA/MENVEO) Aged Out No longer eligible based on patient's age to complete this topic documented as of this encounter Medical Devices Not on filedocumented as of this encounter
--- OUTSIDE RECORDS SUMMARY | 2024-02-27 09:17 | External Medical Summary | Summary of Care ---
Author Name Unknown Organization [facility] Address [address] [place] [address] Phone [phone] Care Team Providers Care College Administrator Name Role Phone Unavailable Primary Care Provider Unavailabl e Reason for Visit * Reason Onset Date Comments Appointment 02/23/2024 Need records hayley or to appointment next week Encounter Details Date Type Department Care Team (Late st Contact Info) Description 02/23/2024 Telephone Gastroenterology, Ahsan Tinsley [facility] [place] [address] Marianne Ceron PA-C [facility] [place] [address] Appointment (Need records prior to [...] of this encounter (statuses as of 02/23/2024) Social History Tobacco Use Types Packs/Day Years [...] encounter Miscellaneous Notes * Telephone Encounter - Marianne Ceron PA-C [...] Description 02/29/2024 3:00 PM EDT Office [facility] [place] [address] [place] [address] [place] [phone] Marianne Ceron PA-C [address] [place] [address] [place] [phone] Health Maintenance Due Date Last Done Comments [...] Cancer Screening 2018 HPV/Co-Test 2018 COVID-19 Vaccine (2022-24 season) 2023 Influenza Vaccine (FLU shot) (#1) 2024 HPV (Gardasil) Vaccine Aged Out No lo nger eligible based on patient's age to complete this topic MENINGOCOCCAL (MENACTRA/MENVEO) Aged Out No longer eligible based on patient's age to complete this topic documented as of this encounter Medical Devices Not on filedocumented as of this encounter
--- OUTSIDE RECORDS SUMMARY | 2024-02-27 09:17 | External Medical Summary | Summary of Care ---
Author Name Unknown Organization [facility] Address [address] [place] [address] Phone [phone] Care Team Providers Care Product Safety Technician Name Role Phone Unavailable Primary Care Provider Unavailabl e Reason for Visit * Reason Onset Date Comments Appointment 02/23/2024 Need records hayley or to appointment next week Encounter Details Date Type Department Care Team (Late st Contact Info) Description 02/23/2024 Telephone Gastroenterology, Ahsan Tinsley [facility] [place] [address] Marianne Ceron PA-C [facility] [place] [address] Appointment (Need records prior to [...] encounter Miscellaneous Notes * Telephone Encounter - Param Quiñones OSA - 02/23/2024 3:48 PM EDT Pt returned call, she will call [facility] in [place], [place] to obtain records andhave them fax to our office. * Telephone Encounter - Teagan Rose OSA [...] 02/29/2024 3:00 PM EDT Office Visit Gastroenterology, [address] [phone] Marianne Ceron PA-C [address] [place] [address] Health Maintenance Due Date Last Done Comments [...]
--- OUTSIDE RECORDS SUMMARY | 2024-02-27 09:17 | External Medical Summary | Summary of Care ---
Author Name Unknown Organization [facility] Address [address] [place] [address] Phone [phone] Care Team Providers Care Picking Crew Supervisor Name Role Phone Unavailable Primary Care Provider Unavailabl e Reason for Referral * Evaluate & Treat - Unlimited Visits (Within 30 days (routine)) - Pending Review Specialty Diagnoses / Procedures Referred By Jay santacruz Referred To Contact Gastroenterology Diagnoses History of Crohn's disease Aly Correia MD [address] [place] [address] Referral ID Status Reason Start Date Expiration Date Visits Requested Visits Authorized [id number] Pending Review Specialty Services Required 12/14/2023 999 [id number] Question Answer Referral Priority Within 30 days (routine) Where should this appointment be scheduled? [facility] For what condition is the patient being referred? All Gastro Conditions Comments Needs to move her care locally, has Crohns, was on Humira until July 2023, wants to restart humira as soon as approved Discharge Order Reason for Visit * Reason Comments Toothache L side * Auth/Cert Specialty Diagnoses / Procedures Referred By Jay santacruz Referred To Contact [facility] [address] [place] [address] Phone: [phone] Emergency Medicine [facility] [address] [place] [address] Referral ID Status Reason Start Date Expiration Date Visits Re quested Visits Authorized [id number] Encounter Details Date Type Department Care Team ([facility] Contact Info) Description 12/14/2023 1:52 PM EDT - 12/14/2023 3:11 PM EDT Emergency [facility] Emergency Department ([facility]) [address] [place] [address] Aly Correia MD [address] [place] [address] Dental abscess (Primary Dx); Herpetic jeremías; History of Crohn's disease Discharge Disposition: Home - Self Care Allergies No known active allergiesdocumented as of this encounter (statuses as of 12/15/2023) Medications Medication Sig Dispensed Refills Start Date End Date Status ZYRTEC 10 MG OR TABSIndications:Ur ticaria,Rash and nonspecific skin eruption one tab by mouth daily 34 5 05/15/2002 Active Additional Information Patient not taking.Reported on 12/14/2023 oxyCODONE-Acetamin ophen 5-325 MG Oral Tablet (Percocet) Take 1 Tablet by mouth every 6 hours as needed for Pain, Moderate or Pain, Severe for up to 5 doses. 5 Tablet 12/14/2023 Active Clindamycin HCl 300 MG Oral Capsule Take 1 Capsule by mouth every 6 hours for 10 days. 40 Capsule 12/14/2023 12/24/2023 Active metroNIDAZOLE 500 MG Oral Tablet Take 1 Tablet by mouth in the morning and 1 Tablet at noon and 1 Tablet before bedtime. Do all this for 10 days. 30 Tablet 12/14/2023 12/24/2023 Active documented as of this encounter (statuses as of 12/15/2023) Active Problems Problem Noted Date Diagnosed Date Syncope and collapse 05/15/2002 NONSPECIF SKIN ERUPT NEC 05/15/2002 Urticaria 05/15/2002 documented as of this encounter (statuses as of 12/15/2023) Social History Tobacco Use Types Packs/Day Years Used Date Smoking Tobacco: Every Day Cigarettes 0.5 10.5 Started: 2013 Smokeless Tobacco: Never Tobacco Cessation:Ready to Q uit: Not Asked; Counseling Given: Not Answered Alcohol Use Standard Drinks/Week Comments Yes 0 (1 standard drink = 0.6 oz pur e alcohol) socially Sex and Gender Information Value Date Recorded Sex Assigned at Not on file Gender Identity Not on file Sexual Orientation Not on file documented as of this encounter Last Filed Vital Signs Vital Sign Reading Time Taken Comments Blood Pressure 128/78 12/14/2023 2:17 PM EDT Pulse 101 12/14/2023 2:17 PM EDT Temperature 36.6 C (97.9 F) 12/14/2023 1:14 PM ED T Respiratory Rate 20 12/14/2023 2:17 PM EDT Oxygen Saturation 99% 12/14/2023 1:14 PM EDT Inhaled Oxygen Concentration - - Weight 76.6 kg (168 lb 12.8 oz) 12/14/2023 1:14 PM EDT Height 167.6 cm (5' 6") 12/14/2023 1:14 PM EDT Body Mass Index 27.25 12/14/2023 1:14 PM EDT documented in this encounter Discharge Instructions * Discharge Instructions* Aly Correia MD - 12/14/2023 2:59 PM EDT To your dentist as soon as possible. Soft diet. Rinse and spit salt water 4 times a day, this should decrease the bacteria in your mouth. Back if any warning signs or problems. No driving using machines alcohol or acetaminophen if taking Percocet. There is a risk of addictionif you take narcotic pain medications like Percocet The rash on your right middle finger is probably a virus infection which is infectious by contact until it goes away, is likely related to viruses that caused cold sores in your mouth. documented in this encounter ED Notes * Kathy Freitas RN - 12/14/2023 1:11 PM EDT Pt reports tooth ache on L side of mouth. Reports drainage from upper jaw and pain in lower jaw. Ptreports taking "goody powder" for pain approximately 1200. Denies fever, trouble swallowing or SOB. documented in this encounter Miscellaneous Notes * ED Ginseng Farmer Note - Christina Last RN - 12/14/2023 3:09 PM EDT Pt discharge instructions, prescription and follow up reviewed with pt and pt verbalized understanding. documented in this encounter Plan of Treatment Scheduled Referrals Name Type Priority Associated Diagnoses Order Schedule ADULT GASTROENTEROLOGY REFERRAL OP Referral Within 30 days (routine) History of Crohn's disease Ordered: 12/14/2023 Health Maintenance Due Date Last Done Comments Diabetes Screening 1988 Pneumococcal Vaccine: Pediatrics (0 to 5 Years) and At-Risk Patients (6 to 64 Years) (1 of 2 - PCV) 1994 DTaP,Tdap,and Td Vaccines (5 - Tdap) 1999 02/04/1994, 07/20/1992, 07/20/1992, Additional history exists Depression Screening 2000 HIV Screening 2003 Hepatitis B (2 of 3 - 3-dose series) 04/16/2003 03/19/2003 Hepatitis C Screening 2006 Pap Smear 2009 Cervical Cancer Screening 2018 HPV/Co-Test 2018 COVID-19 Vaccine ( season) 2023 Influenza Vaccine (FLU shot) (Season Ended) 2024 GARDASIL-HPV IMMUNIZATION SERIES Aged Out No longer eligible based on patient's age to complete this topic MENINGOCOCCAL (MENACTRA/MENVEO) Aged Out No longer eligible based on patient's age to complete this topic documented as of this encounter Medical Devices Not on filedocumented as of this encounter Visit Diagnoses Diagnosis Dental abscess- Primary Periapical abscess without sinus Herpetic jermeías History of Crohn's disease Personal history of unspecified digestive disease documented in this encounter Administered Medications Inactive Administered Medications - up to 3 most recent administrations Medication Order MAR Action Action Date Dose Rate Site Clindamycin (Cleocin) cap 300 mg 300 mg, Oral, ONCE, On Marycruz 12/14/23 at 1530, For 1 dose Given 12/14/2023 3:04 PM EDT 300 mg oxyCODONE-acetaminophen 5-325 mg per tab (Percocet) 1 Tablet 1 Tablet, Oral, ONCE, On Marycruz 12/14/23 at 1530, For 1 dose, Maximum of 4 grams (4000 mg) of acetaminophen per day Given 12/14/2023 3:04 PM EDT 1 Tablet documented in this encounter Active and Recently Administered Medications Times are shown in EDT. Scheduled Medication Order 12/12/2023 12/13/2023 12/14/2023 Clindamycin (Cleocin) cap 300 mg (COMPLETED) 300 mg, Oral, ONCE, On Marycruz 12/14/23 at 1530, For 1 dose 1504 (Given - Provid er: Christina Last RN) oxyCODONE-acetaminophen 5-325 mg per tab (Percocet) 1 Tablet (COMPLETED) 1 Tablet, Oral, ONCE, On Marycruz 12/14/23 at 1530, For 1 dose, Maximum of 4 grams (4000 mg) of acetaminophen per day 1504 (Given - Provid er: Christina Last RN) documented in this encounter
--- NOTE | 2024-02-27 12:20 | Surgery Consultation ---
Date of Consultation February 27, 2024 Assessment & Plan (1) Abscess of intestine due to Crohn's disease: This is a 33yF who presented to the [facility] ED on 02/26/24 with complaints of abdominal pain who presented to the ER on 02/26/24 with abdominal pain. She says it has been going on for about a wk, but has continued to worsen in severity prompting her to come in for evaluation. A CT a/p was obtained that revealed extensive right lower quadrant inflammation centered on the distal ileum. Long segment circumferential wall thickening with mucosal hyperemia of the distal ileum with an associated multiloculated rim-enhancing 7.1 x 4.5 cm abscess anterior to the terminal ileum which extends into the right rectus sheath. The findings suggest active inflammatory bowel disease with abscess formation. No bowel obstruction. Associated tethering of multiple small bowel loops and the transverse colon suggests underlying fistulas. The patient does tell me she has a history of crohns dating 5-6 years ago in [place]. She has been on humira but stopped in july since coming to [place] and has not been re- established with a GI doctor at this point due to scheduling conflicts. She does have an appointment with angelia geiger in the near future. Patient reports feeling a little bit improved this AM. Denies nausea/vomiting. Reported fevers/chills the night prior to admission, but none since. No CP/SOB. Her bowels normally run loose for her. No blood in stool per patient. No prior abdominal surgical history. We have been consulted on the patient yesterday by the ER and recommended transfer given the complexity of the findings on the ct scan. She will benefit from likely colorectal, possibly IR, and gastroenterology. Patient was accepted but awaiting a bed. In the interim npo for bowel rest and iv abx were initiated. today wbc 16 (14), hbg 8.3. temps 99-100f. otherwise vitals stable. on exam patient resting comfortably with tenderness to palpation in the mid/lower right abdomen. she reports feeling better than admission. patient is on the docket for transfer today and agreeable with plan. will follow along while here. Supervising Physician Co-Signing Physician Notes Patient discussed with [place], labs imaging reviewed, agree with above. History of Crohn's disease, presented with abdominal pain, CT scan personally viewed and interpreted and shows large complex intra-abdominal abscess with with significant inflammation of the small bowel and possible fistulous. She has been transferred to a tertiary center for further management and treatment. History of Present Illness Attending Physician: Sal Combs MD History of Present Illness This is a 33yF who presented to the [facility] ED on 02/26/24 with complaints of abdominal pain who presented to the ER on 02/26/24 with abdominal pain. She says it has been going on for about a wk, but has continued to worsen in severity prompting her to come in for evaluation. A CT a/p was obtained that revealed extensive right lower quadrant inflammation centered on the distal ileum. Long segment circumferential wall thickening with mucosal hyperemia of the distal ileum with an associated multiloculated rim-enhancing 7.1 x 4.5 cm abscess anterior to the terminal ileum which extends into the right rectus sheath. The findings suggest active inflammatory bowel disease with abscess formation. No bowel obstruction. Associated tethering of multiple small bowel loops and the transverse colon suggests underlying fistulas. The patient does tell me she has a history of crohns dating 5-6 years ago in [place]. She has been on humira but stopped in july since coming to [place] and has not been re-established with a GI doctor at this point due to scheduling conflicts. She does have an appointment with angelia geiger in the near future. Patient reports feeling a little bit improved this AM. Denies nausea/vomiting. Reported fevers/chills the night prior to admission, but none since. No CP/SOB. Her bowels normally run loose for her. No blood in stool per patient. No prior abdominal surgical history. Allergies Allergy/AdvReac Type Severity Reaction Status Date / Time No Known Allergies Allergy Unverified 02/26/24 15:59 Home Medications Medication Instructions Recorded Confirmed Type No Known Home Medications 02/26/24 02/26/24 History Patient History Social History Smoking Status: Current every day smoker Tobacco Type: Cigarettes Hx Alcohol Use: No Hx Substance Use: Yes Preferred Language: Georgian Manager Psychology Required: No Beliefs That Will Affect Care: None Current Living Situation: Significant Other Current Living Situation Comment: house Feels Safe at Home: Yes Safety Concerns: Feels Safe At This Time Review of Systems Constitutional: + fever and + chills Respiratory: no dyspnea Cardiovascular: no chest pain Gastrointestinal: + abdominal pain and + diarrhea/loose st ools; no nausea, no vomiting and no blood in stools Physical Exam Physical Exam: awake/alert, no distress Constitutional: well developed; no acute distress Respiratory: normal respiratory effort Gastrointestinal (Abdomen): Percussion/Palpation: + abdomen tender (tender in R mid and lower abdomen) and abdomen soft Results & Data Vital Signs (Past 12 Hours) Vital Signs Temp Pulse Pulse Resp BP BP Pulse Ox 02/27/24 11:33 92 H 20 108/58 L 94 02/27/24 10:42 87/62 L 02/27/24 10:42 97 H 14 98 02/27/24 10:30 102 H 19 98 02/27/24 10:00 89/57 L 02/27/24 10:00 106 H 17 96 02/27/24 09:33 99 H 18 97 02/27/24 09:15 97 H 18 96 02/27/24 09:03 02/27/24 08:57 97 H 17 94 02/27/24 08:13 99.0 F 106 H 20 106/63 97 02/27/24 08:03 97 H 20 95 02/27/24 08:00 106/63 02/27/24 08:00 106/63 02/27/24 07:39 96 H 20 95 02/27/24 07:08 97 H 02/27/24 07:06 98 H 20 95 02/27/24 05:58 100.4 F H 115 H 29 H 114/58 L 94 02/27/24 01:54 119 H 28 H 113/69 92 Pulse Ox O2 Del Method O2 Del Method 02/27/24 11:33 02/27/24 10:42 02/27/24 10:42 02/27/24 10:30 02/27/24 10:00 02/27/24 10:00 02/27/24 09:33 02/27/24 09:15 02/27/24 09:03 95 Room Air 02/27/24 08:57 02/27/24 08:13 Room Air 02/27/24 08:03 02/27/24 08:00 02/27/24 08:00 02/27/24 07:39 02/27/24 07:08 02/27/24 07:06 02/27/24 05:58 Room Air 02/27/24 01:54 Room Air Diagnostic Findings CT OF THE ABDOMEN AND PELVIS WITH CONTRAST CLINICAL HISTORY: Right lower quadrant abdominal pain. COMPARISON STUDY: Pelvic ultrasound performed earlier today. TECHNIQUE: Following IV administration of 93 mL of Optiray, axial images of the abdomen and pelvis were obtained from the lung bases to the proximal femurs. Images were reviewed in the axial, sagittal, and coronal planes. IV contrast was administered without complication. Automated exposure control was utilized for the study. A dose lowering technique was utilized adhering to the principles of ALARA. CT DOSE: 1015.67 mGy.cm FINDINGS: A 7 mm left lower lobe pulmonary nodule on image 5 of 293 is noted. Lung bases are otherwise unremarkable. No pneumatosis, free air or portal venous gas is present. There is no biliary ductal dilatation status post cholecy stectomy. Spleen, renal glands, kidneys and pancreas are unremarkable with exception of a low-attenuation 9 mm lesion which arises from the lower pole of the left kidney. This measures just above water attenuation. There is no hydronephrosis. There is no evidence for a bowel obstruction. The appendix is mildly thickened, measuring 8 mm in caliber. The findings do not suggest acute appendicitis. There is extensive right lower quadrant inflammation centered on the terminal ileum, extending into the mesentery. There is long segment moderate circumferential wall thickening with mucosal hyperemia of the distal ileum. Tethering within the mesentery is noted, shown best on image 206 of 393. 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 There is a loculated rim-enhancing fluid collection anterior to the terminal ileum which measures 7.1 x 4.5 cm. This appears to extend into the right rectus sheath. Extensive adjacent inflammation is present. This contains a small amount of gas. No additional fluid collections are present. There is a small amount of fluid within the pelvis. Major vasculature is patent. IMPRESSION: 1. Extensive right lower quadrant inflammation centered on the distal ileum. Long segment circumferential wall thickening with mucosal hyperemia of the distal ileum with an associated multiloculated rim-enhancing 7.1 x 4.5 cm abscess anterior to the terminal ileum which extends into the right rectus sheath. The findings suggest active inflammatory bowel disease with abscess formation. No bowel obstruction. Associated tethering of multiple small bowel loops and the transverse colon suggests underlying fistulas. 2. Mildly thickened appendix, likely secondary to active inflammatory bowel disease. No evidence for acute appendicitis. 3. Small amount of fluid within the pelvis. 4. 9 mm hypodense left lower pole renal lesion. A renal cyst is favored however a nonemergent renal ultrasound is recommended for confirmation. 5. 7 mm left lower lobe pulmonary nodule. This is likely benign. A chest CT in 6 months to ensure stability is recommended. ACT 112: Positive. There are findings on this exam that require communication between the performing entity and the patient following Patient Test Result Information Act ([place] Act 112) guidelines. Electronically signed by: Ramana Toledo M.D. 02/26/2024 3:30 PM PG Care Time/CCT Total # of Minutes Spent Total Time Spent with Patient: Total time spent is greater than 50% in coordination of care (as documented) at patient's floor/unit and/or counseling patient: Coding Level of Care Code 23181 OFFICE CONSULT LVL M Diagnoses Abscess of intestine due to Crohn's disease K50.914
[2024-02-27] MEDS: ONDANSETRON INJ 2 MG/ML 2 ML VIAL IV PRN (12:56)
--- NOTE | 2024-02-27 13:59 | Hospitalist Progress Note ---
Date of Service February 27, 2024 Assessment & Plan (1) Sepsis: Plan: Sepsis Intra-abdominal abscess H/O Crohn's disease Melena --CT ABD:Extensive right lower quadrant inflammation centered on the distal ileum. Long segment circumferential wall thickening with mucosal hyperemia of the distal ileum with an associated multiloculated rim-enhancing 7.1 x 4.5 cm abscess anterior to the terminal ileum which extends into the right rectus sheath. The findings suggest active inflammatory bowel disease with abscess formation. No bowel obstruction. Associated tethering of multiple small bowel loops and the transverse colon suggests underlying fistulas. Mildly thickened appendix, likely secondary to active inflammatory bowel disease. No evidence for acute appendicitis. Small amount of fluid within the pelvis. 9 mm hypodense left lower pole renal lesion. A renal cyst is favored however a nonemergent renal ultrasound is recommended for confirmation.7 mm left lower lobe pulmonary nodule. This is likely benign. A chest CT in 6 months to ensure stability is recommended. -- Blood cultures pending -- Continue IV Zosyn, IV fluids --Continue IV Protonix Pain control Surgery on board Plan to be discharged to tertiary care facility for further management Upper GI bleed Likely due to Crohn's disease + Fecal occult Monitor H&H and transfuse as needed Continue IV Protonix Left renal lesion Incidental finding on CT Follow-up as outpatient Left lower lobe pulmonary nodule Incidental finding on CT Tobacco use disorder Follow-up as outpatient [employer] to quit smoking Hyponatremia Hypokalemia Replete electrolytes as needed Monitor Anemia of chronic disease Iron deficiency Will give IV Venofer Monitor CBC DVT Px: SCDs Re: GI bleed Code Status Full code Disposition [facility] Admission and Anticipated Discharge Date Admission Date: February 26, 2024 Subjective Patient is seen and examined at bedside States having abdominal pain associated with minimal diarrhea Denies any nausea, vomiting, chest pain, dyspnea today Waiting for transfer to tertiary [facility] hospital Review of Systems Review of Systems: All systems reviewed & are unremarkable except as noted in Subjective Physical Exam Physical Exam: Physical Exam: Vitals signs as noted above General Appearance:Moderately built and nourished, no apparent distress Head: normocephalic, Atraumatic Eyes: normal inspection, EOMI Neck: supple, Trachea midline Respiratory/Chest: Normal breath sounds, CTA, No accessory muscle use Cardiovascular: S1, S2, No murmur Abdomen/GI:Soft, Distended, RLQ, Hypogastric tender, Bowel sounds present Extremities/Musculoskeletal:normal inspection, no edema Neurologic/Psych:AAOX3, grossly no focal neurological deficits Skin: normal color, warm Results & Data Results & Data Vital Signs (Past 12 Hours) Vital Signs Temp Pulse Pulse Resp BP BP Pulse Ox 02/27/24 11:33 92 H 20 108/58 L 94 02/27/24 10:42 87/62 L 02/27/24 10:42 97 H 14 98 02/27/24 10:30 102 H 19 98 02/27/24 10:00 89/57 L 02/27/24 10:00 106 H 17 96 02/27/24 09:33 99 H 18 97 02/27/24 09:15 97 H 18 96 02/27/24 09:03 02/27/24 08:57 97 H 17 94 02/27/24 08:13 37.2 C 106 H 20 106/63 97 02/27/24 08:03 97 H 20 95 02/27/24 08:00 106/63 02/27/24 08:00 106/63 02/27/24 07:39 96 H 20 95 02/27/24 07:08 97 H 02/27/24 07:06 98 H 20 95 02/27/24 05:58 38.0 C H 115 H 29 H 114/58 L 94 Pulse Ox O2 Del Method O2 Del Method 02/27/24 11:33 02/27/24 10:42 02/27/24 10:42 02/27/24 10:30 02/27/24 10:00 02/27/24 10:00 02/27/24 09:33 02/27/24 09:15 02/27/24 09:03 95 Room Air 02/27/24 08:57 02/27/24 08:13 Room Air 02/27/24 08:03 02/27/24 08:00 02/27/24 08:00 02/27/24 07:39 02/27/24 07:08 02/27/24 07:06 02/27/24 05:58 Room Air Laboratory Results Short CBC 02/27/24 02/27/24 Range/Units 00:10 04:38 WBC 16.96 H (4.8-10.8) K/ul Hgb 9.4 L 8.3 L (12.0-16.0) g/dl Hct 31.1 L 27.1 L (37.0-47.0) % Plt Count 366 (130-400) K/uL BMP 02/26/24 02/27/24 02/27/24 13:20 00:10 04:38 Sodium 132 L 133 L 131 L Potassium 3.9 3.4 L Chloride 96 L 99 Carbon Dioxide 30 25 BUN 7 5 L Creatinine 0.54 L 0.57 L Glucose 86 88 Calcium 8.5 L 7.6 L Liver Function 02/26/24 Range/Units 13:20 Total Bilirubin 0.3 (0.2-1.0) mg/dl AST 19 (13-39) U/L ALT 14 (7-52) U/L Alkaline Phosphatase 116 H (34-104) U/L Albumin 3.0 L (3.4-5.0) gm/dl Urine 02/26/24 Range/Units 13:25 Urine Color Yellow Urine Appearance Clear (Clear) Urine pH 7.0 (4.5-7.5) Ur Specific Bedias 1.012 (1.000-1.030) Urine Protein Negative (Negative) Urine Glucose (UA) Negative (Negative)
--- NOTE | 2024-02-27 15:25 | Discharge Summary ---
Date of Service February 27, 2024 Admission HPI Per Admitting Provider History obtained from patient and records. Medical history significant for Crohn's disease, ongoing tobacco abuse. 4 days history of achy right lower quadrant pain which progressively worsened. Black stools as per patient. No emesis. Chills at home. Denies chest pain, SOB. Usual smoker's cough symptoms as per patient. Admits to OTC NSAID intake at home. Patient currently having menses. Patient consulted [facility] ER. CT abdomen pelvis showed Extensive right lower quadrant inflammation centered on the distal ileum. Long segment circumferential wall thickening with mucosal hyperemia of the distal ileum with an associated multiloculated rim-enhancing 7.1 x 4.5 cm abscess anterior to the terminal ileum which extends into the right rectus sheath. The findings suggest active inflammatory bowel disease with abscess formation. No bowel obstruction. Associated tethering of multiple small bowel loops and the transverse colon suggests underlying fistulas. IV Zosyn administered at the ER. [facility] General Surgery recommended transfer to tertiary center. Patient [facility] [place] [facility] [place] pending bed availability. Medical History as above Surgical History : None Family History : No IBD Personal/Social history : 1/2 pack daily, no EtOH intake, currently unemployed Admission Exam Per Admitting Provider GENERAL: uncomfortable, looks older than stated age, no respiratory distress SKIN: Pallor, warm HEENT: Pale palpebral conjunctivae, no ptosis, dry buccal mucosa NECK : Supple, no tenderness CHEST : Decreased breath sounds, occasional expiratory wheezes, no tenderness HEART : Tachycardic, no obvious murmurs ABDOMEN: Some distention, hypogastric tenderness RECTAL : Intact sphincter, dark brown stool (FOBT positive) EXTREMITIES : No LE swelling/tenderness, no other conspicuous deformities noted NEUROLOGIC : Coherent, no facial asymmetry, no other gross focality Principal Diagnosis Sepsis Intra-abdominal abscess Crohn's disease GI bleed Discharge Data Allergies Allergy/AdvReac Type Severity Reaction Status Date / Time No Known Allergies Allergy Unverified 02/26/24 15:59 Consultations 02/26/24 20:15 ED Decision to Admit Stat Procedures Performed Laboratory Results WBC 16.96 K/ul (4.8-10.8) H 02/27/24 04:38 RBC 3.91 M/uL (4.20-5.40) L 02/27/24 04:38 Hgb 8.3 g/dl (12.0-16.0) L 02/27/24 04:38 Hct 27.1 % (37.0-47.0) L 02/27/24 04:38 MCV 69.3 fL (80.0-100.0) L 02/27/24 04:38 MCH 21.2 pg (25.0-34.0) L 02/27/24 04:38 MCHC 30.6 g/dL (32.0-36.0) L 02/27/24 04:38 RDW Std Deviation 44.2 fL (36.4-46.3) 02/27/24 04:38 RDW Coeff of Wes 17.7 % (11.5-14.5) H 02/27/24 04:38 Plt Count 366 K/uL (130-400) 02/27/24 04:38 MPV 10.8 fL (9.4-12.4) 02/27/24 04:38 Immature Gran % (Auto) 0.7 % 02/27/24 04:38 Neut % (Auto) 88.0 % 02/27/24 04:38 Lymph % (Auto) 4.4 % 02/27/24 04:38 [place] % (Auto) 6.5 % 02/27/24 04:38 Eos % (Auto) 0.3 % 02/27/24 04:38 Baso % (Auto) 0.1 % 02/27/24 04:38 Reticulocyte % (Auto) 1.00 % (0.50-2.00) 02/27/24 00:10 Neut # (Auto) 14.92 K/uL (1.40-6.50) H 02/27/24 04:38 Lymph # (Auto) 0.74 K/uL (1.20-3.40) L 02/27/24 04:38 [place] # (Auto) 1.11 K/uL (0.11-0.59) H 02/27/24 04:38 Eos # (Auto) 0.05 K/uL (0.00-0.50) 02/27/24 04:38 Baso # (Auto) 0.02 K/uL (0.00-0.20) 02/27/24 04:38 Reticulocyte # 0.040 10^6/uL (0.020-0.100) 02/27/24 00:10 Immature Gran # (Auto) 0.12 K/uL (0.01-0.20) 02/27/24 04:38 Polychromasia 2+ 02/27/24 04:38 Microcytosis Present 02/27/24 04:38 Sodium 131 mmol/L (136-145) L 02/27/24 04:38 Potassium 3.4 mmol/L (3.5-5.1) L 02/27/24 04:38 Chloride 99 mmol/L (98-107) 02/27/24 04:38 Carbon Dioxide 25 mmol/L (21-32) 02/27/24 04:38 Anion Gap 7 (3-11) 02/27/24 04:38 BUN 5 mg/dl (6-23) L 02/27/24 04:38 Creatinine 0.57 mg/dl (0.6-1.2) L 02/27/24 04:38 Est Cr Clr Drug Dosing 142.2 ml/min 02/27/24 04:38 Est GFR ( Amer) 139.2 ml/min 02/27/24 04:38 Est GFR (Non-Af Amer) 120.1 ml/min 02/27/24 04:38 BUN/Creatinine Ratio 8.8 (10-20) L 02/27/24 04:38 Glucose 88 mg/dl (70-99(Fasting)) 02/27/24 04:38 Lactate 0.8 mmol/L (0.4-2.0) 02/26/24 16:52 Calcium 7.6 mg/dl (8.6-10.3) L 02/27/24 04:38 Magnesium 1.8 mg/dl (1.7-2.4) 02/27/24 00:10 Iron < 10 mcg/dl (35-150) L 02/27/24 00:10 Transferrin 169 mg/dl (200-360) L 02/27/24 00:10 Ferritin 38.1 ng/ml (8-388) 02/27/24 00:10 Total Bilirubin 0.3 mg/dl (0.2-1.0) 02/26/24 13:20 AST 19 U/L (13-39) 02/26/24 13:20 ALT 14 U/L (7-52) 02/26/24 13:20 Alkaline Phosphatase 116 U/L (34-104) H 02/26/24 13:20 Total Protein 7.4 gm/dl (6.0-8.3) 02/26/24 13:20 Albumin 3.0 gm/dl (3.4-5.0) L 02/26/24 13:20 Globulin 4.4 gm/dl (2.5-4.0) H 02/26/24 13:20 Albumin/Globulin Ratio 0.7 (0.9-2) L 02/26/24 13:20 Lipase 4 U/L (11-82) L 02/26/24 13:20 Vitamin B12 393 pg/ml (180-914) 02/27/24 00:10 Folate 17.22 ng/ml (>5.38) 02/27/24 00:10 Procalcitonin 0.03 ng/ml (0-0.5) 02/26/24 13:20 HCG, Qual Negative (Negative) 02/26/24 13:20 Urine Color Yellow 02/26/24 13:25 Urine Appearance Clear (Clear) 02/26/24 13:25 Urine pH 7.0 (4.5-7.5) 02/26/24 13:25 Ur Specific Champion 1.012 (1.000-1.030) 02/26/24 13:25 Urine Protein Negative (Negative) 02/26/24 13:25 Urine Glucose (UA) Negative (Negative) 02/26/24 13:25 Urine Ketones Negative (Negative) 02/26/24 13:25 Urine Blood 3+ (Negative) H 02/26/24 13:25 Urine Nitrite Negative (Negative) 02/26/24 13:25 Urine Bilirubin Negative (Negative) 02/26/24 13:25 Urine Urobilinogen Negative (Negative) 02/26/24 13:25 Ur Leukocyte Esterase Trace (Negative) H 02/26/24 13:25 Urine WBC (Auto) 0-5 /hpf (0-5) 02/26/24 13:25 Urine RBC (Auto) >20 /hpf (0-2) H 02/26/24 13:25 U Hyaline Cast (Auto) 0-2 /lpf (0-2) 02/26/24 13:25 U Epithel Cells (Auto) 6-10 /hpf (0-2) H 02/26/24 13:25 Urine Bacteria (Auto) None Seen (None Seen) 02/26/24 13:25 Blood Type O Negative 02/26/24 16:52 Antibody Screen NEGATIVE 02/26/24 16:52 Impressions Pelvis Ultrasound 02/26/24 13:03 PELVIC ULTRASOUND CLINICAL HISTORY: RLQ pain/abnormal vag bleed COMPARISON STUDY: Same day CT of the abdomen and pelvis. TECHNIQUE: Transabdominal and transvaginal sonography of the pelvis was performed. FINDINGS: Uterus measures 10 x 5.4 x 5.5 cm. The endometrium measures 1 cm in thickness. A small amount of fluid within the pelvis is present. There is color flow within each ovary. The right ovary measures 2.7 x 1.9 x 2.5 cm and the left ovary measures 3 x 2.3 x 3 cm. Note is made of a complex fluid collection within the right lower quadrant which measures 9.1 x 8 x 5.3 cm. There is wall thickening of several adjacent ileal loops. IMPRESSION: 1. Unremarkable sonographic appearance of the uterus and ovaries. 2. 9.1 x 8 x 5.3 cm complex right lower quadrant fluid collection consistent with an abscess, likely secondary to active inflammatory bowel disease given circumference wall thickening of the adjacent distal ileum, better depicted on same-day CT. 3. Small amount of fluid within the pelvis. ACT 112: Negative or not required by law. Electronically signed by: Ramana Toledo M.D. 02/26/2024 3:40 PM Transvaginal US 02/26/24 13:03 PELVIC ULTRASOUND CLINICAL HISTORY: RLQ pain/abnormal vag bleed COMPARISON STUDY: Same day CT of the abdomen and pelvis. TECHNIQUE: Transabdominal and transvaginal sonography of the pelvis was performed. FINDINGS: Uterus measures 10 x 5.4 x 5.5 cm. The endometrium measures 1 cm in thickness. A small amount of fluid within the pelvis is present. There is color flow within each ovary. The right ovary measures 2.7 x 1.9 x 2.5 cm and the left ovary measures 3 x 2.3 x 3 cm. Note is made of a complex fluid collection within the right lower quadrant which measures 9.1 x 8 x 5.3 cm. There is wall thickening of several adjacent ileal loops. IMPRESSION: 1. Unremarkable sonographic appearance of the uterus and ovaries. 2. 9.1 x 8 x 5.3 cm complex right lower quadrant fluid collection consistent with an abscess, likely secondary to active inflammatory bowel disease given circumference wall thickening of the adjacent distal ileum, better depicted on same-day CT. 3. Small amount of fluid within the pelvis. ACT 112: Negative or not required by law. Electronically signed by: Ramana Toledo M.D. 02/26/2024 3:40 PM Abdomen/Pelvis CT 02/26/24 15:01 CT OF THE ABDOMEN AND PELVIS WITH CONTRAST CLINICAL HISTORY: Right lower quadrant abdominal pain. COMPARISON STUDY: Pelvic ultrasound performed earlier today. TECHNIQUE: Following IV administration of 93 mL of Optiray, axial images of the abdomen and pelvis were obtained from the lung bases to the proximal femurs. Images were reviewed in the axial, sagittal, and coronal planes. IV contrast was administered without complication. Automated exposure control was utilized for the study. A dose lowering technique was utilized adhering to the principles of ALARA. CT DOSE: 1015.67 mGy.cm FINDINGS: A 7 mm left lower lobe pulmonary nodule on image 5 of 293 is noted. Lung bases are otherwise unremarkable. No pneumatosis, free air or portal venous gas is present. There is no biliary ductal dilatation status post cholecystectomy. Spleen, renal glands, kidneys and pancreas are unremarkable with exception of a low-attenuation 9 mm lesion which arises from the lower pole of the left kidney. This measures just above water attenuation. There is no hydronephrosis. There is no evidence for a bowel obstruction. The appendix is mildly thickened, measuring 8 mm in caliber. The findings do not suggest acute appendicitis. There is extensive right lower quadrant inflammation centered on the terminal ileum, extending into the mesentery. There is long segment moderate circumferential wall thickening with mucosal hyperemia of the distal ileum. Tethering within the mesentery is noted, shown best on image 206 of 393. 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 There is a loculated rim-enhancing fluid collection anterior to the terminal ileum which measures 7.1 x 4.5 cm. This appears to extend into the right rectus sheath. Extensive adjacent inflammation is present. This contains a small amount of gas. No additional fluid collections are present. There is a small amount of fluid within the pelvis. Major vasculature is patent. IMPRESSION: 1. Extensive right lower quadrant inflammation centered on the distal ileum. Long segment circumferential wall thickening with mucosal hyperemia of the distal ileum with an associated multiloculated rim-enhancing 7.1 x 4.5 cm abscess anterior to the terminal ileum which extends into the right rectus sheath. The findings suggest active inflammatory bowel disease with abscess formation. No bowel obstruction. Associated tethering of multiple small bowel loops and the transverse colon suggests underlying fistulas. 2. Mildly thickened appendix, likely secondary to active inflammatory bowel disease. No evidence for acute appendicitis. 3. Small amount of fluid within the pelvis. 4. 9 mm hypodense left lower pole renal lesion. A renal cyst is favored however a nonemergent renal ultrasound is recommended for confirmation. 5. 7 mm left lower lobe pulmonary nodule. This is likely benign. A chest CT in 6 months to ensure stability is recommended. ACT 112: Positive. There are findings on this exam that require communication between the performing entity and the patient following Patient Test Result Information Act ([place] Act 112) guidelines. Electronically signed by: Ramana Toledo M.D. 02/26/2024 3:30 PM Ordered Studies 02/26/24 13:03 US pelvic complete Stat US transvaginal Stat 02/26/24 15:01 CT Abd and Pelvis [CT abd pelvis IV con only] Stat Hospital Course (1) Sepsis: Sepsis Intra-abdominal abscess H/O Crohn's disease Melena --CT ABD:Extensive right lower quadrant inflammation centered on the distal ileum. Long segment circumferential wall thickening with mucosal hyperemia of the distal ileum with an associated multiloculated rim-enhancing 7.1 x 4.5 cm abscess anterior to the terminal ileum which extends into the right rectus sheath. The findings suggest active inflammatory bowel disease with abscess formation. No bowel obstruction. Associated tethering of multiple small bowel loops and the transverse colon suggests underlying fistulas. Mildly thickened appendix, likely secondary to active inflammatory bowel disease. No evidence for acute appendicitis. Small amount of fluid within the pelvis. 9 mm hypodense left lower pole renal lesion. A renal cyst is favored however a nonemergent renal ultrasound is recommended for confirmation.7 mm left lower lobe pulmonary nodule. This is likely benign. A chest CT in 6 months to ensure stability is recommended. 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 Hyponatremia Hypokalemia Replete electrolytes as needed Monitor Anemia of chronic disease Iron deficiency Will give IV Venofer Monitor CBC DVT Px: SCDs Re: GI bleed Code Status Full code Disposition [facility] Total Time Total Time Spent Total Time Spent (In Minutes): 56 minutes Discharge Plan Discharge Items Patient Disposition: Transfer Acute Care Hospital Reason For Visit: SEPSIS; GI BLEED Discharge Diagnosis: Sepsis Intra-abdominal abscess Crohn's disease GI bleed Activity: Per Instructions section Exercise/Sports: Wait until after follow-up appointment Non-emergency contact: Primary Care Provider and Supervisor Backfilling Call non-emergency contact if: you have any medication questions, your symptoms worsen, your pain is concerning for you and you have a fever Follow-up/Referrals: PCP,NO [Primary Care Provider] - Dietitian Info: NPO currently Diet: Other - See Diet Comment Addbarrera Attending Provider Instructions: Follow-up with Dr. Naik at [facility] for further management Seek immediate medical attention if your symptoms reoccur or worsen Please take all medications as instructed on discharge list below. Please call if you have any questions or problems. You can reach a [facility] hospitalist on duty at [facility] 24 hours a day by calling [phone] Brent Gis Administrator Provider Instructions: Current Inpatient Medications Acetaminophen (Acetaminophen 325 Mg Tab) 650 mg PO QID PRN PRN Reason: pain/fever Stop: 03/27/24 20:22 Last Admin: 02/27/24 05:59 Dose: 650 mg Piperacillin Sod/Tazobactam Sod (Zosyn) 4.5 gm in 100 mls @ 25 mls/hr IV Q8H RHEA Stop: 03/07/24 23:29 Last Admin: 02/27/24 08:07 Dose: 4.5 mls/hr Pantoprazole Sodium 40 mg/ (Syringe) 10 mls @ 5 mls/min IV BID RHEA Stop: 03/28/24 08:59 Last Admin: 02/27/24 08:43 Dose: 5 mls/min Potassium Chloride/Sodium Chloride (Normal Saline W/20 Meq Kcl) 20 meq in 1,000 mls @ 100 mls/hr IV .Q10H ONE; Protocol Stop: 02/27/24 16:29 Last Admin: 02/27/24 08:07 Dose: 100 mls/hr Lorazepam (Lorazepam 0.5 Mg Tab) 0.5 mg PO TID PRN PRN Reason: Anxiety Stop: 03/27/24 22:27 Morphine Sulfate (Morphine Sulfate 2 Mg/Ml Carp) 2 mg IV Q3H PRN PRN Reason: Pain Stop: 03/11/24 21:43 Ondansetron HCl (Ondansetron Inj 2 Mg/Ml 2 Ml Vial) 4 mg IV Q6H PRN PRN Reason: Nausea And Vomiting Stop: 03/28/24 12:27 Last Admin: 02/27/24 12:56 Dose: 4 mg Oxycodone HCl (Oxycodone Hcl Ir 5 Mg Tab (Immediate Release)) 5 mg PO Q4H PRN PRN Reason: Pain Stop: 03/11/24 20:22 Last Admin: 02/27/24 08:12 Dose: 5 mg Pending Studies at Discharge: Yes Studies:: Blood culture Stand-Alone Forms: [facility] Skilled Items Patient informed of condition?: Yes DNR: No Discharge Level of Care: Other Communicable Disease: No Discharge Prognosis: Stable Lines: Peripheral IV Urinary Catheter: No Medications and DC Order Prescriptions: No Action No Known Home Medications Discharge Orders: Discharge Order (Routine); Ordered 02/27/24 Ordered By: Sal Combs Admission Data Admit Date/Time: 02/26/24 21:44 Attending Provider: Sal Combs Admit Provider: Darius Chaparro Primary Care Provider: PCP,NO Other Providers: Darius Chaparro
[2024-02-27] MEDS: IRON SUCROSE 300 MG in SODIUM CHLORIDE 0.9% 250 ML IV ONE (15:38)
--- NOTE | 2024-02-28 01:46 | Communication Note ---
Date of Service: February 28, 2024 Patient with vaginal bleeding present even during confinement. Usual right sided abdominal pain from abscess as per RN. Hemoglobin drop on review of blood work AP Vaginal bleeding Gynecology consult in a.m.
[2024-02-28] MEDS: PROMETHAZINE 6.25 MG/50.25 ML BAG IV PRN (02:09)
[2024-02-28] MEDS: NSS + 20MEQ KCL 20 MEQ/1,000 ML BAG IV ONE (03:23)
--- NOTE | 2024-02-28 06:09 | Electrocardiogram Report ---
Test Reason : Blood Pressure : */* mmHG Vent. Rate : 95 BPM Atrial Rate : 95 BPM P-R Int : 150 ms QRS Dur : 94 ms QT Int : 356 ms P-R-T Axes : 4 77 35 degrees QTcB Int : 447 ms Normal sinus rhythm Nonspecific ST abnormality Abnormal ECG No previous ECGs available Confirmed by Tre Johnston ([id number]) on 02/28/2024 6:08:58 AM Referred By: NO PCP Confirmed By: Tre Johnston
[2024-02-28 06:42] LABS: Hematocrit (blood only) 24.1 % (37.0-47.0); Hemoglobin 7.3 g/dl (12.0-16.0); Mean Corpuscular Hemoglobin 21.8 pg (25.0-34.0); Mean Corpuscular Hgb Conc 30.3 g/dL (32.0-36.0); Mean Corpuscular Volume 71.9 fL (80.0-100.0); Mean Platelet Volume 10.5 fL (9.4-12.4); Platelet Count 314 K/uL (130-400); RDW Coefficient of Variation 17.8 % (11.5-14.5); RDW Standard Deviation 46.3 fL (36.4-46.3); Red Blood Count 3.35 M/uL (4.20-5.40); White Blood Count 8.53 K/ul (4.8-10.8)
[2024-02-28 07:20] LABS: BUN Creatinine Ratio 7.1 (10-20); Calcium 7.5 mg/dl (8.6-10.3); Creatinine Clr Calc Pharmacy 145.9 ml/min; Est GFR (Non-African American) 120.8 ml/min; Magnesium 1.8 mg/dl (1.7-2.4); Potassium 3.7 mmol/L (3.5-5.1)
--- NOTE | 2024-02-28 09:28 | OB/GYN Consultation ---
Date of Consultation February 28, 2024 Assessment & Plan (1) Irregular menses: 1 consult for irregular menses. Patient was admitted for abdominal pain status post history of Crohn's disease Plan Reviewed menses history with patient. Patient present has very little bleeding with her menses. This is a one-time episode. She always has regular menses not to mention she is only 2 to 3 days earlier than scheduled menses. Bleeding presently is very minimal. Patient is status post tubal ligation. Expectant management for now patient will follow-up with me as outpatient in the office thank you thanks for the consult. History of Present Illness Attending Physician: Lisa Cummings MD History of Present Illness Patient is a 33-year-old with history of Crohn's disease. Patient presented to the emergency room with abdominal pain among other symptoms she was admitted on medicine service. During her workup she complained of abnormal menses she reports getting her menses q. monthly. Her last menses was beginning of the month. She has however started her subsequent menses menses in less than a month and was concerned if this was a problem. Is always had normal menses. Patient reports her menses are heavy she is status post tubal ligation. 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
--- NOTE | 2024-02-28 14:03 | Hospitalist Progress Note ---
Date of Service February 28, 2024 Assessment & Plan (1) Sepsis: Plan: Sepsis Intra-abdominal abscess H/O Crohn's disease Melena --CT ABD:Extensive right lower quadrant inflammation centered on the distal ileum. Long segment circumferential wall thickening with mucosal hyperemia of the distal ileum with an associated multiloculated rim-enhancing 7.1 x 4.5 cm abscess anterior to the terminal ileum which extends into the right rectus sheath. The findings suggest active inflammatory bowel disease with abscess formation. No bowel obstruction. Associated tethering of multiple small bowel loops and the transverse colon suggests underlying fistulas. Mildly thickened appendix, likely secondary to active inflammatory bowel disease. No evidence for acute appendicitis. Small amount of fluid within the pelvis. 9 mm hypodense left lower pole renal lesion. A renal cyst is favored however a nonemergent renal ultrasound is recommended for confirmation.7 mm left lower lobe pulmonary nodule. This is likely benign. A chest CT in 6 months to ensure stability is recommended. -- Blood cultures negative so far -- Continue IV Zosyn, IV fluids --Continue IV Protonix Pain control Surgery recs noted Patient is currently [place] [facility] [place] talked with transfer center a few times this morning. 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 ?regular menses Gyne eval noted DVT Px: SCDs Re: GI bleed Code Status Full code Disposition Janelle Sosa I spent a total of 50 minutes coordinating, documenting and providing care for this patient excluding time spent in performance of separately billed services Admission and Anticipated Discharge Date Admission Date: February 26, 2024 Subjective Patient seen and examined Reports severe abd pain Denied nausea, vomiting Denied chest pain, cough, SOB Reports malaise and fatigue Denied hematochezia Physical Exam Constitutional: + ill appearing and + well hydrated; no acute distress Eyes: PERRL, conjunctivae normal, anicteric sclerae ENMT: external ear and nose normal, oropharynx normal Respiratory: normal respiratory effort, lungs clear to auscultation Cardiovascular: Rate/Rhythm: regular rhythm and + tachycardic Gastrointestinal (Abdomen): Soft, +tenderness, normal bowel sounds Musculoskeletal: No pedal edema Neurologic: PERRL, EOMI, accommodation nl, no face palsy, no dysarthria Psychiatric: A+Ox3, euthymic affect Results & Data Results & Data Vital Signs (Past 12 Hours) Vital Signs Temp Pulse Pulse Resp BP BP Pulse Ox 02/28/24 11:59 37.2 C 122 H 18 93/53 L 95 02/28/24 07:40 02/28/24 07:39 36.8 C 100 H 16 103/63 94 02/28/24 07:00 87 02/28/24 03:17 37.3 C 101 H 16 111/59 L 92 O2 Del Method 02/28/24 11:59 Room Air 02/28/24 07:40 Room Air 02/28/24 07:39 Room Air 02/28/24 07:00 02/28/24 03:17 Room Air Laboratory Results Abnormal lab results 02/28/24 Range/Units 06:07 RBC 3.35 L (4.20-5.40) M/uL Hgb 7.3 L (12.0-16.0) g/dl Hct 24.1 L (37.0-47.0) % MCV 71.9 L (80.0-100.0) fL MCH 21.8 L (25.0-34.0) pg MCHC 30.3 L (32.0-36.0) g/dL RDW Coeff of Wes 17.8 H (11.5-14.5) % Sodium 135 L (136-145) mmol/L BUN 4 L (6-23) mg/dl Creatinine 0.56 L (0.6-1.2) mg/dl BUN/Creatinine Ratio 7.1 L (10-20) Calcium 7.5 L (8.6-10.3) mg/dl
[2024-02-28] MEDS: PLASMA-LYTE A 1,000 ML IV SCH (14:58)
--- NOTE | 2024-02-28 16:52 | Discharge Summary ---
Date of Service February 28, 2024 Admission HPI Per Admitting Provider History obtained from patient and records. Medical history significant for Crohn's disease, ongoing tobacco abuse. 4 days history of achy right lower quadrant pain which progressively worsened. Black stools as per patient. No emesis. Chills at home. Denies chest pain, SOB. Usual smoker's cough symptoms as per patient. Admits to OTC NSAID intake at home. Patient currently having menses. Patient consulted [facility] ER. CT abdomen pelvis showed Extensive right lower quadrant inflammation centered on the distal ileum. Long segment circumferential wall thickening with mucosal hyperemia of the distal ileum with an associated multiloculated rim-enhancing 7.1 x 4.5 cm abscess anterior to the terminal ileum which extends into the right rectus sheath. The findings suggest active inflammatory bowel disease with abscess formation. No bowel obstruction. Associated tethering of multiple small bowel loops and the transverse colon suggests underlying fistulas. IV Zosyn administered at the ER. [facility] General Surgery recommended transfer to tertiary center. Patient accepted [place] [facility] [place] service pending bed availability. Medical History as above Surgical History : None Family History : No IBD Personal/Social history : 1/2 pack daily, no EtOH intake, currently unemployed Admission Exam Per Admitting Provider GENERAL: uncomfortable, looks older than stated age, no respiratory distress SKIN: Pallor, warm HEENT: Pale palpebral conjunctivae, no ptosis, dry buccal mucosa NECK : Supple, no tenderness CHEST : Decreased breath sounds, occasional expiratory wheezes, no tenderness HEART : Tachycardic, no obvious murmurs ABDOMEN: Some distention, hypogastric tenderness RECTAL : Intact sphincter, dark brown stool (FOBT positive) EXTREMITIES : No LE swelling/tenderness, no other conspicuous deformities noted NEUROLOGIC : Coherent, no facial asymmetry, no other gross focality Principal Diagnosis Sepsis Intra-abdominal abscess Crohn's disease GI bleed Discharge Exam Constitutional + ill appearing and + well hydrated; no acute distress Eyes PERRL, conjunctivae normal, anicteric sclerae ENMT external ear and nose normal, oropharynx normal Respiratory normal respiratory effort, lungs clear to auscultation Cardiovascular Rate/Rhythm: regular rhythm and + tachycardic Gastrointestinal (Abdomen) Soft, +tenderness (Left abd, suprapubic), normal bowel sounds Musculoskeletal No pedal edema Neurologic PERRL, EOMI, accommodation nl, no face palsy, no dysarthria Psychiatric A+Ox3, euthymic affect Discharge Data Allergies Allergy/AdvReac Type Severity Reaction Status Date / Time No Known Allergies Allergy Unverified 02/26/24 15:59 Consultations 02/26/24 20:15 ED Decision to Admit Stat 02/28/24 01:48 Consult Gynecology Routine Ordered Studies 02/26/24 13:03 US pelvic complete Stat US transvaginal Stat 02/26/24 15:01 CT Abd and Pelvis [CT abd pelvis IV con only] Stat Hospital Course (1) Sepsis: Sepsis Intra-abdominal abscess H/O Crohn's disease Melena --CT ABD:Extensive right lower quadrant inflammation centered on the distal ileum. Long segment circumferential wall thickening with mucosal hyperemia of the distal ileum with an associated multiloculated rim-enhancing 7.1 x 4.5 cm abscess anterior to the terminal ileum which extends into the right rectus sheath. The findings suggest active inflammatory bowel disease with abscess formation. No bowel obstruction. Associated tethering of multiple small bowel loops and the transverse colon suggests underlying fistulas. Mildly thickened appendix, likely secondary to active inflammatory bowel disease. No evidence for acute appendicitis. Small amount of fluid within the pelvis. 9 mm hypodense left lower pole renal lesion. A renal cyst is favored however a nonemergent renal ultrasound is recommended for confirmation.7 mm left lower lobe pulmonary nodule. This is likely benign. A chest CT in 6 months to ensure stability is recommended. -- Blood cultures negative so far -- Continue IV Zosyn, IV fluids, NPO --Continue IV Protonix Pain control Surgery evaluated and recommended transfer to tertiary center Patient transferred to [facility] for further management GI bleed Likely due to Crohn's disease + Fecal occult Monitor H&H and transfuse as needed Continue IV Protonix Left renal lesion Incidental finding on CT Follow-up as outpatient Left lower lobe pulmonary nodule Incidental finding on CT Tobacco use disorder Follow-up as outpatient Counselled regarding smoking cessation Hyponatremia Hypokalemia Replete electrolytes as needed Monitor Acute on chronic anemia, Likely due to GI loss Anemia of chronic disease Iron deficiency Got IV Venofer Monitor CBC Hb trending down 7.3 today Medical Program Specialist noted vaginal bleeding. ?regular menses Total Time Total Time Spent Total Time Spent (In Minutes): 35 Total Time Includes: Examination of the Patient, Discharge Planning and Me dication Reconciliation Discharge Plan Discharge Items Patient Disposition: Transfer Acute Care Hospital Reason For Visit: SEPSIS; GI BLEED Discharge Diagnosis: Sepsis Intra-abdominal abscess Crohn's disease GI bleed Activity: Per Instructions section Exercise/Sports: Wait until after follow-up appointment Non-emergency contact: Primary Care Provider and [facility] Hospitalist Call non-emergency contact if: you have any medication questions, your symptoms worsen, your pain is concerning for you and you have a fever Follow-up/Referrals: PCP,NO [Primary Care Provider] - Dietitian Info: NPO currently Diet: Other - See Diet Comment Addtl Attending Provider Instructions: Follow-up with Dr. Naik at [facility] for further management Seek immediate medical attention if your symptoms reoccur or worsen Please take all medications as instructed on discharge list below. Please call if you have any questions or problems. You can reach a [facility] hospitalist on duty at [facility] 24 hours a day by calling [phone] Edward Financial Aid Manager Provider Instructions: Current Inpatient Medications Acetaminophen (Acetaminophen 325 Mg Tab) 650 mg PO QID PRN PRN Reason: pain/fever Stop: 03/27/24 20:22 Last Admin: 02/27/24 05:59 Dose: 650 mg Piperacillin Sod/Tazobactam Sod (Zosyn) 4.5 gm in 100 mls @ 25 mls/hr IV Q8H RHEA Stop: 03/07/24 23:29 Last Admin: 02/27/24 08:07 Dose: 4.5 mls/hr Pantoprazole Sodium 40 mg/ (Syringe) 10 mls @ 5 mls/min IV BID RHEA Stop: 03/28/24 08:59 Last Admin: 02/27/24 08:43 Dose: 5 mls/min Potassium Chloride/Sodium Chloride (Normal Saline W/20 Meq Kcl) 20 meq in 1,000 mls @ 100 mls/hr IV .Q10H ONE; Protocol Stop: 02/27/24 16:29 Last Admin: 02/27/24 08:07 Dose: 100 mls/hr Lorazepam (Lorazepam 0.5 Mg Tab) 0.5 mg PO TID PRN PRN Reason: Anxiety Stop: 03/27/24 22:27 Morphine Sulfate (Morphine Sulfate 2 Mg/Ml Carp) 2 mg IV Q3H PRN PRN Reason: Pain Stop: 09/09/24 21:43 Ondansetron HCl (Ondansetron Inj 2 Mg/Ml 2 Ml Vial) 4 mg IV Q6H PRN PRN Reason: Nausea And Vomiting Stop: 03/28/24 12:27 Last Admin: 02/27/24 12:56 Dose: 4 mg Oxycodone HCl (Oxycodone Hcl Ir 5 Mg Tab (Immediate Release)) 5 mg PO Q4H PRN PRN Reason: Pain Stop: 03/11/24 20:22 Last Admin: 02/27/24 08:12 Dose: 5 mg Pending Studies at Discharge: Yes Studies:: Blood culture Stand-Alone Forms: [facility] Skilled Items Patient informed of condition?: Yes DNR: No Discharge Level of Care: Other Communicable Disease: No Discharge Prognosis: Stable Lines: Peripheral IV Urinary Catheter: No Medications and DC Order Prescriptions: No Action No Known Home Medications Discharge Orders: Discharge Order (Routine); Ordered 02/28/24 Ordered By: Lisa Cummings Admission Data Admit Date/Time: 02/26/24 21:44 Attending Provider: Lisa Cummings I. Admit Provider: Darius Chaparro Primary Care Provider: PCP,NO Other Providers: Darius Chaparro; Thomas Moralez; Yue Nettles; Elisa Gomez; Alistair Hernandez; Mateo Cortez; Andrea Lund; Sunil Soliman; Yolie Obrien; Esme Covarrubias; Erika Saldana; Linda Vernon; Shilpi Sampson; Dorcas Hilton; Connie Keene; Jesse Monge; Janette Nolasco; Garret,Sal Multani
[2024-02-28] MEDS: MoRPHine SULFATE 2 MG/ML CARP IV PRN (17:40)
== END 2024-02-28 20:08 | disposition short-term general hospital (02) | DRG 872 ==
LOC: ED 12:49 → EDINP 21:44 → SUATTDRO 21:44 → 2N 23:52